=== PATIENT | male | born 1945 | race Caucasian/White ===

== ENCOUNTER 2017-04-08 02:37 | Inpatient (IN) | payer OTHER ==
[~2017-04-08] VITALS: Ht 172.7 cm; Wt 103.4 kg
[~2017-04-08 02:37] MED LIST: ATIVAN0.5 M1 PO; CARDIZEM CD120 MG PO; CENTRUM SILVER1 EAC1 PO; DIOVAN320 M1 PO; FENOFIBRIC ACI135 MG PO; LOVAZA1 G1 PO; METFORMIN HCL500 M3 PO; XARELTO20 MG PO
--- NOTE | 2017-04-08 02:53 | ED GENERAL ADULT ---
History of Present Illness General Chief Complaint: General Adult Stated Complaint: MULTI COMP,COUGH.PT ON Z-PAC PER DR BRADY Source: patient Exam Limitations: no limitations Vital Signs & Intake/Output Vital Signs & Intake/Output Vital Signs Date Time Temp Pulse Resp B/P B/P Pulse O2 O2 Flow FiO2 Mean Ox Delivery Rate 04/10 1646 95 Nasal 2.0L Cannula 04/10 1457 97.7 86 20 107/53 93 Room Air 04/10 1157 64 98/68 04/10 0845 92 Nasal 1.0L Cannula 04/10 0800 95 Nasal 2.0L Cannula 04/10 0714 60 112/58 04/10 0708 97.4 102 18 92 Room Air 04/10 0000 100 CPAP 04/09 2154 97.8 55 20 118/78 100 Room Air ED Intake and Output 04/10 0000 04/09 1200 Intake Total 1240 Output Total Balance 1240 Intake, Oral 1240 Allergies Coded Allergies: No Known Allergies (04/08/17) Triage Nurses Notes Reviewed? yes Onset: Gradual Duration: day(s):, waxing and waning Timing: recent history Injury Environment: home Severity: moderate Modifying Factors: Improves With: rest. Associated Symptoms: cough HPI: 72 yo gentleman presents with cough, wheezing, dyspnea x 5 days. He started a z-pack yesterday. He notes that the wheezing, coughing, dyspnea has continued. He has no chest pain, dizziness, phlegm, lower extremity swelling, syncopal symptoms. He is otherwise well, (Veronica CHÁVEZ,Servando Fierro) Reconcile Medications Albuterol Sulfate (Proair Hfa) 90 MCG HFA.AER.AD 2 PUF INH Q4-6 PRN PRN BREATHING (Reported) Azithromycin 250 MG TABLET 1 DP PO AD INFECTION (Reported) 2 the first day followed by 1 for days 2-5 Cetirizine HCl (Zyrtec) 10 MG TABLET 1 TAB PO DAILY ALLERGIES (Reported) Folic Acid/Multivit-Min/Lutein (Centrum Silver Chewable Tablet) 400 MCG-250 MCG TAB.CHEW 1 TAB PO DAILY MULTIVITAMIN (Reported) Furosemide (Lasix) 20 MG TABLET (Unknown Dose) PO DAILY HEART HEALTH ( Reported) Guaifenesin 100 MG/5 ML LIQUID 10 ML PO Q6P PRN COUGH Lorazepam (Ativan) 0.5 MG TABLET 1 TAB PO BID ANXIETY (Reported) Metformin HCl 500 MG TABLET 1 TAB PO BID DIABETES (Reported) Metoprolol Succinate 100 MG TAB.ER.24H 1 TAB PO QHS HEART HEALTH (Reported) Montelukast Sodium 10 MG TABLET 1 TAB PO DAILY ALLERGIES (Reported) Trinity-3 Acid Ethyl Esters (Lovaza) 1 GRAM CAPSULE 2 CAP PO BID CHOLESTEROL ( Reported) Pitavastatin Calcium (Livalo) 4 MG TABLET 1 TAB PO M,W,FR HEART HEALTH ( Reported) Polyethylene Glycol 3350 (Miralax) 17 GRAM/DOSE POWDER 17 GM PO DAILY PRN CONSTIPATION Potassium Chloride 10 MEQ TABLET.ER 1 TAB PO DAILY ELECTROLYTES (Reported) Rivaroxaban (Xarelto) 20 MG TABLET 1 TAB PO DAILY AFIB with food Sennosides/Docusate Sodium (Senna Plus Tablet) 8.6 MG-50 MG TABLET 1 TAB PO BID PRN CONSTIPATION Ubidecarenone (Coq-10) 100 MG CAPSULE 1 CAP PO QHS HEART HEALTH (Reported) Valsartan (Diovan) 320 MG TABLET 1 TAB PO DAILY HEART HEALTH (Reported) (Rica CHÁVEZ,Kaila) Past History Medical History Any Pertinent Medical History? see below for history Cardiovascular: AFIB, hypertension, hyperlipidemia Endocrine: diabetes Surgical History Surgical History: non-contributory Psychosocial History What is your primary language Nepalese Family History Hx Contributory? No (Veronica CHÁVEZ,Servando Fierro) Review of Systems Review of Systems Constitutional: Reports: no symptoms. EENTM: Reports: no symptoms. Respiratory: Reports: no symptoms. Cardiovascular: Reports: no symptoms. GI: Reports: no symptoms. Genitourinary: Reports: no symptoms. Musculoskeletal: Reports: no symptoms. Skin: Reports: no symptoms. Neurological/Psychological: Reports: no symptoms. Hematologic/Endocrine: Reports: no symptoms. Immunologic/Allergic: Reports: no symptoms. All Other Systems: Reviewed and Negative (Veronica CHÁVEZ,Servando Fierro) Physical Exam Physical Exam General Appearance: well developed/nourished, mild distress Head: atraumatic, normal appearance Eyes: Bilateral: normal appearance. Ears, Nose, Throat: normal pharynx, normal ENT inspection Neck: normal inspection, supple, full range of motion Respiratory: wheezing, prolonged expiratory phase Cardiovascular: regular rate/rhythm Gastrointestinal: normal bowel sounds, soft, non-tender, no organomegaly Back: normal inspection, normal range of motion Extremities: normal inspection, normal capillary refill, normal range of motion, no edema Neurologic/Psych: no motor/sensory deficits, awake, alert, oriented x 3 Skin: intact, normal color, warm/dry Core Measures ACS in differential dx? No CVA/TIA Diagnosis: No Sepsis Present: No Sepsis Focused Exam Completed? No (Veronica CHÁVEZ,Servando Fierro) Progress Differential Diagnoses I considered the following diagnoses in my evaluation of the patient: bronchitis, chf, pneumonia, influenza Plan of Care: Orders Procedure Date/time Status CBC WITHOUT DIFFERENTIAL 04/11 0600 Active BASIC ELECTROLYTES PLUS BUN&CR 04/11 06 Active STREP PNEUMO URINARY ANTIGEN 04/10 0731 Complete LEGIONELLA URINARY ANTIGEN 04/10 0731 Complete HEPATIC FUNCTION PANEL 04/10 07 Complete CBC WITHOUT DIFFERENTIAL 04/10 0729 Complete BASIC ELECTROLYTES PLUS BUN&CR 04/10 0729 Complete AEROSOL CHG 04/09 UNK Complete OXYGEN 04/09 UNK Complete OXYGEN DAILY CHARGE 04/09 UNK Complete Current Medications Sig/Rick Start time Last Medication Dose Stop Time Status Admin Ampicillin Sodium/ 3,000 MG Q6 04/10 1800 UNVr Sulbactam Sodium (Unasyn) Sodium Chloride 100 ML (Normal Saline 0.9%) Furosemide 20 MG DAILY 04/10 1000 AC (Lasix) Budesonide 0.5 MG Q12 04/09 2200 AC 04/09 (Pulmicort) 2025 Ipratropium [place] 2.5 ML EVERY 4 HRS/AWAKE 04/09 1200 AC 04/10 (Atrovent) 1643 Guaifenesin/Codeine 10 ML BID PRN 04/09 1115 AC 04/10 Phosphate 1536 (Robitussin AC) Prednisone 40 MG DAILY 04/09 1019 AC 04/10 1147 Polyethylene Glycol 17 GM DAILY PRN 04/09 1000 AC (Miralax) Senna/Docusate Sodium 1 TAB BID PRN 04/09 1000 AC (Senokot S) Guaifenesin 10 ML Q6P PRN 04/09 0930 AC 04/09 (Robitussin) 1030 Albuterol Sulfate 2.5 ML EVERY 4 HRS/AWAKE 04/09 0800 AC 04/10 (Proventil) 1645 Omeprazole 20 MG DAILY AC 04/09 0700 AC 04/10 (Prilosec) 0611 Benzonatate 100 MG TID 04/08 2200 AC 04/10 (Tessalon Capsule) 1147 Metoprolol Succinate 100 MG AT BEDTIME 04/08 2200 AC 04/09 (Toprol Xl) 2050 Rivaroxaban 20 MG 1700 04/08 1700 AC 04/09 (Xarelto) 1620 Insulin Aspart 0 TIDAC 04/08 1200 AC 04/09 (NovoLOG) 1908 Fish Oil 1,050 MG DAILY 04/08 1000 AC 04/10 (Trinity-3) 1147 Loratadine 10 MG DAILY 04/08 1000 AC 04/10 (Claritin) 1147 Lorazepam 0.5 MG BID 04/08 1000 AC 04/10 (Ativan) 04/15 0959 1147 Losartan Potassium 100 MG DAILY 04/08 1000 AC 04/09 (Cozaar) 1043 Acetaminophen 650 MG Q6P PRN 04/08 0945 AC (Tylenol) Ibuprofen 600 MG Q6P PRN 04/08 0945 AC (Motrin) Oxycodone/ 1 TAB Q6P PRN 04/08 0945 AC Acetaminophen (Percocet) Laboratory Tests 04/10/17 1108: Anion Gap 13, Estimated GFR 54 L, BUN/Creatinine Ratio 36.2 H, Total Bilirubin 0.5, Direct Bilirubin 0.3, AST 127 H, ALT 236 H, Alkaline Phosphatase 70, Total Protein 6.1 L, Albumin 3.5, CBC w Diff NO MAN DIFF REQ, RBC 4.15 L, MCV 100.7 H, MCH 33.0 H, RDW 15.1 H, MPV 10.1, Gran % 80.6 H, Lymphocytes % 7.8 L, Monocytes % 11.4 H, Eosinophils % 0, Basophils % 0.2, Absolute Granulocytes 12.4 H, Absolute Lymphocytes 1.2, Absolute Monocytes 1.8 H, Absolute Eosinophils 0, Absolute Basophils 0, PUBS MCHC 32.7 L Microbiology 04/10 1350 URINE ROUT: Legionella Antigen - COMP 04/10 135 URINE ROUT: Streptococcus pneumoniae Antigen (M - COMP PATIENT ADMITTED BY DR MARTIN. (Rica CHÁVEZ,Kaila) Diagnostic Imaging: Viewed by Me: Radiology Read, CT Scan. Discussed w/RAD: Radiology Read, CT Scan. Radiology Impression: chest ct... opacities... no PE PATIENT: STEFFI RUIZ PRESENT AGE: 72 PATIENT ACCOUNT NO: [id number] : LOCATION: [facility] ORDERING PHYSICIAN: Servando Martin MD SERVICE DATE: 04/08/17 EXAM TYPE: CAT - CT ABD & PELVIS W/O IV CONTRAS; CTA CHEST- PULMONARY EMBOLISM EXAMINATION: CT ANGIOGRAM OF THE CHEST WITH AND WITHOUT CONTRAST (CT PULMONARY ANGIOGRAM FOR PE) CT ABDOMEN AND PELVIS WITHOUT CONTRAST CLINICAL INFORMATION: Chest pain with positive d-dimer. Elevated LFTs. COMPARISON: 12/02/2016 TECHNIQUE: A noncontrast CT of the abdomen and pelvis was initially obtained. Prior to contrast administration, noncontrast localization images were obtained. Subsequently, multidetector volumetric imaging was performed from the thoracic inlet to below the diaphragms following the administration of 80 mL Omnipaque 350 intravenous contrast. No contrast reaction reported Sagittal, coronal, and MIP oblique sagittal reformatted images were obtained on the CT workstation, uploaded to PACS, and reviewed. Total exam dose- length product 527 mGy-cm FINDINGS: QUALITY OF STUDY/CONTRAST BOLUS: Satisfactory. PULMONARY ARTERIES: No central or segmental pulmonary emboli. THORACIC AORTA: No aneurysm or dissection. LUNG: The central airways are patent. Bronchial filling defects are seen, particularly in the right middle lobe with associated consolidation. Patchy opacity in the lingula. Additional patchy opacities in both lower lobes in areas of additional bronchial filling defects. These findings are new when compared to the previous CT. Mild centrilobular emphysema. PLEURA: No pleural effusion or pneumothorax. MEDIASTINUM: The heart is prominent. Coronary artery calcifications noted. No pericardial effusion. Increased prominence of mediastinal lymph nodes. For instance, there is a precarinal node which measures 2.5 x 1.2 cm. This compares to the prior study, measuring 2 x 0.8 cm.. No evidence of septal bowing or right heart strain. CHEST WALL/AXILLA: No axillary or internal mammary lymphadenopathy. LIVER, GALLBLADDER, AND BILIARY TREE: The liver is normal in size, shape, and attenuation. No focal hepatic lesion or biliary ductal dilatation is present. The gallbladder is unremarkable with no evidence of radiopaque gallstones, gallbladder wall thickening, or obvious pericholecystic inflammatory changes. PANCREAS: Unremarkable. SPLEEN: Unremarkable. ADRENAL GLANDS: Unremarkable. KIDNEYS AND URETERS: The kidneys are normal in size, shape, and attenuation. No hydronephrosis, hydroureter, or calculi seen. Symmetric bilateral perinephric stranding. There is a 1.2 cm left lower pole renal cyst. BLADDER: Unremarkable. GASTROINTESTINAL TRACT: The stomach and small bowel appear unremarkable. No dilated loops of bowel or evidence of obstruction. No colonic wall thickening or inflammatory change. Normal appendix. ABDOMINAL WALL: No significant hernia is appreciated. LYMPH NODES: Normal. VASCULAR: Normal caliber aorta with moderate atherosclerotic calcifications. PELVIC VISCERA: The prostate and seminal vesicles are unremarkable. OSSEOUS STRUCTURES: No acute or suspicious osseous abnormality. Mild degenerative changes throughout the spine. IMPRESSION: 1. No pulmonary embolism. 2. Diffuse bronchial filling defects with associated patchy airspace opacities seen in both lungs. Considerations include multifocal pneumonia versus aspiration. Prominent mediastinal lymph nodes are likely reactive. 3. No acute findings in the abdomen or pelvis. VTE: negative DICTATED BY: Mili CHÁVEZ,Camron DATE/TIME DICTATED:04/08/17647 HEALTH SCIENCE INSTRUCTOR: GLORIA DATE/TIME TRANSCRIBED:04/08/17647 CONFIDENTIAL, DO NOT COPY WITHOUT APPROPRIATE AUTHORIZATION. <Electronically signed in Other Vendor System> SIGNED BY: Mili CHÁVEZ,Camron 04/08/17656 CXR Impression: infiltrate... full report PATIENT: STEFFI RUIZ PRESENT AGE: 72 PATIENT ACCOUNT NO: [id number] : 43 LOCATION: [facility] ORDERING PHYSICIAN: Servando Martin MD SERVICE DATE: EXAM TYPE: RAD - XRY-CHEST XRAY, TWO VIEWS EXAMINATION: XR CHEST CLINICAL INFORMATION: Cough and dyspnea. Hypoxia. COMPARISON: CT from 12/02/2016. TECHNIQUE: 2 views of the chest were obtained. FINDINGS: The lungs are well expanded. Patchy left basilar opacity. No pleural effusion or pneumothorax. The cardiomediastinal silhouette is prominent. No acute osseous abnormality. Degenerative changes of the spine. IMPRESSION: Patchy opacity at the left lung base could represent atelectasis or pneumonia. DICTATED BY: Mili CHÁVEZ,Camron DATE/TIME DICTATED:04/08/17415 HEALTH SCIENCE INSTRUCTOR:BENJAMIN DATE/TIME TRANSCRIBED:04/08/17415 CONFIDENTIAL, DO NOT COPY WITHOUT APPROPRIATE AUTHORIZATION. <Electronically signed in Other Vendor System> SIGNED BY: Mili CHÁVEZ,Camron 04/08/17 0420 Initial ED EKG: afib, no change from prior (Servando Martin MD) Differential Diagnoses I considered the following diagnoses in my evaluation of the patient: (Kaila Strauss MD) Departure Departure Disposition: STILL A PATIENT Condition: Stable Clinical Impression Primary Impression: Pneumonia Secondary Impressions: Hypoxia Referrals: Peterson Collier MD (PCP/Family) Departure Forms: Customer Survey General Discharge Information Comments upon arrival, 02 sat 88%, peak flow 180. Admission Note Spoke With: Sondra Cueto MD Documentation of Exam: Documentation of any treatments & extenuating circumstances including Concerns Regarding Discharge (functional status, medication knowledge or non-compliance, living conditions, etc.) that warrant an admission rather than observation: pt with pneumonia, hypoxic upon presentation, with comorbidities... pt to be admitted for iv abx, having failed out patient abx... pt also merits 02 support... pt with known afib, likely okay for gen med. (Servando Martin MD) Departure Prescriptions: Current Visit Scripts Guaifenesin 10 ML PO Q6P PRN COUGH 14 Days Polyethylene Glycol 3350 (Miralax) 17 GM PO DAILY PRN CONSTIPATION 30 Days Sennosides/Docusate Sodium (Senna Plus Tablet) 1 TAB PO BID PRN CONSTIPATION #30 TAB Rivaroxaban (Xarelto) 1 TAB PO DAILY #30 TAB with food PA/PRODUCTION CONTROLLER Co-Sign Statement Statement: ED Attending supervision documentation- [] I saw and evaluated the patient. I have also reviewed all the pertinent lab results and diagnostic results. I agree with the findings and the plan of care as documented in the PA's/PRODUCTION CONTROLLER's documentation. [] I have reviewed the ED Record and agree with the PA's/PRODUCTION CONTROLLER's documentation. [] Additions or exceptions (if any) to the PAs/PRODUCTION CONTROLLER's note and plan are summarized below: [] (Kaila Strauss MD) Critical Care Note Critical Care Note Critical Care Time: non-applicable (Servando Martin MD)
--- NOTE | 2017-04-08 04:20 | RADIOLOGY REPORT ---
EXAMINATION: XR CHEST CLINICAL INFORMATION: Cough and dyspnea. Hypoxia. COMPARISON: CT from 12/02/2016. TECHNIQUE: 2 views of the chest were obtained. FINDINGS: The lungs are well expanded. Patchy left basilar opacity. No pleural effusion or pneumothorax. The cardiomediastinal silhouette is prominent. No acute osseous abnormality. Degenerative changes of the spine. IMPRESSION: Patchy opacity at the left lung base could represent atelectasis or pneumonia.
[2017-04-08 04:21] LABS: ABSOLUTE BASOPHIL COUNT 0 /CUMM (0.0-0.2); ABSOLUTE EOSINOPHIL COUNT 0.1 /CUMM (0.0-0.7); ABSOLUTE GRANULOCYTE CT 7.4 /CUMM (1.4-6.5); ABSOLUTE LYMPH COUNT 0.9 /CUMM (1.2-3.4); ABSOLUTE MONOCYTE COUNT 0.7 /CUMM (0.10-0.60); BASOPHIL % 0.3 % (0.0-2.0); EOSINOPHIL % 1.2 % (0-5); GRANULOCYTE % 81.2 % (42.2-75.2); HEMATOCRIT 45.6 % (42-52); MEAN CORPUSCULAR HGB 32.6 PG (27.0-31.0); MEAN CORPUSCULAR VOLUME 98.9 FL (80.0-94.0); MEAN PLATELET VOLUME 10.3 FL (7.4-10.4); PLATELET COUNT 141 /CUMM (130-400); RBC DISTRIBUTION WIDTH 14.4 % (11.5-14.5); RED BLOOD CELL CT 4.61 /CUMM (4.70-6.10); WHITE BLOOD CELL COUNT 9.1 /CUMM (4.8-10.8)
[2017-04-08] MEDS ORDERED: POTASSIUM CHLO10 ME4 PO (05:34)
[2017-04-08] MEDS ORDERED: MONTELUKAST SOD10 M1 PO (05:35)
[2017-04-08] MEDS ORDERED: PROAIR HFA8.5 GM INH (05:36)
[2017-04-08] MEDS ORDERED: LIVALO4 M1 PO (05:38)
[2017-04-08] MEDS ORDERED: METOPROLOL SUC100 M2 PO (05:40)
[2017-04-08] MEDS ORDERED: AZITHROMYCIN250 M1 PO (05:41)
[2017-04-08] MEDS ORDERED: COQ-10100 MG PO (05:42)
[2017-04-08] MEDS ORDERED: LASIX20 M1 PO (05:43)
[2017-04-08] MEDS ORDERED: ZYRTEC10 M3 PO (05:45)
--- NOTE | 2017-04-08 06:57 | CT SCAN REPORT ---
EXAMINATION: CT ANGIOGRAM OF THE CHEST WITH AND WITHOUT CONTRAST (CT PULMONARY ANGIOGRAM FOR PE) CT ABDOMEN AND PELVIS WITHOUT CONTRAST CLINICAL INFORMATION: Chest pain with positive d-dimer. Elevated LFTs. COMPARISON: 12/02/2016 TECHNIQUE: A noncontrast CT of the abdomen and pelvis was initially obtained. Prior to contrast administration, noncontrast localization images were obtained. Subsequently, multidetector volumetric imaging was performed from the thoracic inlet to below the diaphragms following the administration of 80 mL Omnipaque 350 intravenous contrast. No contrast reaction reported Sagittal, coronal, and MIP oblique sagittal reformatted images were obtained on the CT workstation, uploaded to PACS, and reviewed. Total exam dose-length product 527 mGy-cm FINDINGS: QUALITY OF STUDY/CONTRAST BOLUS: Satisfactory. PULMONARY ARTERIES: No central or segmental pulmonary emboli. THORACIC AORTA: No aneurysm or dissection. LUNG: The central airways are patent. Bronchial filling defects are seen, particularly in the right middle lobe with associated consolidation. Patchy opacity in the lingula. Additional patchy opacities in both lower lobes in areas of additional bronchial filling defects. These findings are new when compared to the previous CT. Mild centrilobular emphysema. PLEURA: No pleural effusion or pneumothorax. MEDIASTINUM: The heart is prominent. Coronary artery calcifications noted. No pericardial effusion. Increased prominence of mediastinal lymph nodes. For instance, there is a precarinal node which measures 2.5 x 1.2 cm. This compares to the prior study, measuring 2 x 0.8 cm.. No evidence of septal bowing or right heart strain. CHEST WALL/AXILLA: No axillary or internal mammary lymphadenopathy. LIVER, GALLBLADDER, AND BILIARY TREE: The liver is normal in size, shape, and attenuation. No focal hepatic lesion or biliary ductal dilatation is present. The gallbladder is unremarkable with no evidence of radiopaque gallstones, gallbladder wall thickening, or obvious pericholecystic inflammatory changes. PANCREAS: Unremarkable. SPLEEN: Unremarkable. ADRENAL GLANDS: Unremarkable. KIDNEYS AND URETERS: The kidneys are normal in size, shape, and attenuation. No hydronephrosis, hydroureter, or calculi seen. Symmetric bilateral perinephric stranding. There is a 1.2 cm left lower pole renal cyst. BLADDER: Unremarkable. GASTROINTESTINAL TRACT: The stomach and small bowel appear unremarkable. No dilated loops of bowel or evidence of obstruction. No colonic wall thickening or inflammatory change. Normal appendix. ABDOMINAL WALL: No significant hernia is appreciated. LYMPH NODES: Normal. VASCULAR: Normal caliber aorta with moderate atherosclerotic calcifications. PELVIC VISCERA: The prostate and seminal vesicles are unremarkable. OSSEOUS STRUCTURES: No acute or suspicious osseous abnormality. Mild degenerative changes throughout the spine. IMPRESSION: 1. No pulmonary embolism. 2. Diffuse bronchial filling defects with associated patchy airspace opacities seen in both lungs. Considerations include multifocal pneumonia versus aspiration. Prominent mediastinal lymph nodes are likely reactive. 3. No acute findings in the abdomen or pelvis. VTE: negative
[2017-04-08] MEDS ORDERED: XARELTO20 M2 PO (09:47)
--- NOTE | 2017-04-08 09:55 | History & Physical ---
Hussain CHÁVEZ,Pari 04/08/17 0955: General Information and HPI MD Statement: I have seen and personally examined STEFFI RUIZ and documented this H&P. The patient is a 72 year old M who presented with a patient stated chief complaint of sob, cough[]. Source of Information: patient, old records Exam Limitations: no limitations History of Present Illness: This is a 72 yo male with PMH of afib on xarelto, htn, anxiety, hld, who comes in with CC of SOB and cough. He states since his 's about a week ago he has been increasingly stressed and feeling under the weather. However, this past Thursday he chavo particularly weak, SOB and developed cough and coryza. He states cough was initially non-productive but then with thick sputum that he had difficulty bringing up. He saw PCP Dr. Azar yesterday and was started on Azithromycin. He denies any RICO/dizziness, chagne in vision, but does endorse cough, sore throat, coryza, SOB, no CP, abd pain, N,V, does endorse diarrhea for which he took imodium. He does not currently smoke, but has hx of 30+ pack years. Quit 25 yrs ago. He does endorse social etoh consumption, no IVDA. While pt is noT aware of any pulm diagnosis he uses CPAP at night. Allergies/Medications Allergies: Coded Allergies: No Known Allergies (04/08/17) Home Med list Albuterol Sulfate (Proair Hfa) 90 MCG HFA.AER.AD 2 PUF INH Q4-6 PRN PRN BREATHING (Reported) Azithromycin 250 MG TABLET 1 DP PO AD INFECTION (Reported) 2 the first day followed by 1 for days 2-5 Cetirizine HCl (Zyrtec) 10 MG TABLET 1 TAB PO DAILY ALLERGIES (Reported) Folic Acid/Multivit-Min/Lutein (Centrum Silver Chewable Tablet) 400 MCG-250 MCG TAB.CHEW 1 TAB PO DAILY MULTIVITAMIN (Reported) Furosemide (Lasix) 20 MG TABLET (Unknown Dose) PO DAILY HEART HEALTH ( Reported) Lorazepam (Ativan) 0.5 MG TABLET 1 TAB PO BID ANXIETY (Reported) Metformin HCl 500 MG TABLET 1 TAB PO BID DIABETES (Reported) Metoprolol Succinate 100 MG TAB.ER.24H 1 TAB PO QHS HEART HEALTH (Reported) Montelukast Sodium 10 MG TABLET 1 TAB PO DAILY ALLERGIES (Reported) [place]-3 Acid Ethyl Esters (Lovaza) 1 GRAM CAPSULE 2 CAP PO BID CHOLESTEROL ( Reported) Pitavastatin Calcium (Livalo) 4 MG TABLET 1 TAB PO M,W,FR HEART HEALTH ( Reported) Potassium Chloride 10 MEQ TABLET.ER 1 TAB PO DAILY ELECTROLYTES (Reported) Rivaroxaban (Xarelto) 20 MG TABLET 1 TAB PO DAILY AFIB with food Ubidecarenone (Coq-10) 100 MG CAPSULE 1 CAP PO QHS HEART HEALTH (Reported) Valsartan (Diovan) 320 MG TABLET 1 TAB PO DAILY HEART HEALTH (Reported) Compliance With Home Meds: GOOD Past History Travel History Traveled to [place] past 21 day No Medical History Neurological: NONE EENT: allergies Cardiovascular: AFIB, hypertension, hyperlipidemia Respiratory: obstructive sleep apnea, pneumonia Gastrointestinal: NONE Hepatic: NONE Renal: NONE Musculoskeletal: NONE Psychiatric: anxiety Endocrine: diabetes Blood Disorders: NONE Cancer(s): NONE 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 Exam & Diagnostic Data Last 24 Hrs of Vital Signs/I&O Vital Signs Date Time Temp Pulse Resp B/P B/P Pulse O2 O2 Flow FiO2 Mean Ox Delivery Rate 04/08 1351 98.1 112 20 135/77 96 Nasal 2.5L Cannula 04/08 1146 86 132/72 04/08 1015 96.6 86 18 132/72 94 04/08 0813 96.1 116 18 143/77 94 04/08 0515 99.3 110 18 143/89 93 Room Air 04/08 0318 95 Nasal 2.0L Cannula 04/08 0315 94 Nasal 2.0L Cannula 04/08 0254 98.1 85 18 148/95 89 Room Air Intake & Output 04/08 1600 04/08 0800 04/08 0000 Intake Total Output Total Balance Patient 103.419 kg Weight Weight Reported by Patient Measurement Method Physical Exam General Appearance Alert, Oriented X3, Cooperative, No Acute Distress Skin No Significant Lesion HEENT Atraumatic, PERRLA, EOMI, Mucous Membr. moist/pink Neck Supple, No LAD Cardiovascular afib. tachycardic Lungs diffuse expiratory wheeze in all harrison. no crackles or rhonchi Abdomen Soft, No Tenderness Last 24 Hrs of Labs/Fabian: Laboratory Tests 04/08/17 0454: Anion Gap 15, Estimated GFR > 60, BUN/Creatinine Ratio 44.3 H, Glucose 137 H, Calcium 8.7, Total Bilirubin 1.1, Direct Bilirubin 0.4, AST 283 H, ALT 260 H, Alkaline Phosphatase 70, Troponin I 0.09, Total Protein 6.4, Albumin 3.7, Amylase < 30 L, Lipase 68 04/08/17 0353: D-Dimer High Sensitivty 437 H, CBC w Diff NO MAN DIFF REQ, RBC 4.61 L, MCV 98.9 H, MCH 32.6 H, RDW 14.4, MPV 10.3, Gran % 81.2 H, Lymphocytes % 9.5 L, Monocytes % 7.8, Eosinophils % 1.2, Basophils % 0.3, Absolute Granulocytes 7.4 H, Absolute Lymphocytes 0.9 L, Absolute Monocytes 0.7 H, Absolute Eosinophils 0.1, Absolute Basophils 0, PUBS MCHC 33.0 Microbiology 04/08 1022 URINE ROUT: Legionella Antigen - COLB 04/08 1022 URINE ROUT: Streptococcus pneumoniae Antigen (M - COLB 04/08 0500 LOWER RESP: Respiratory Culture - RES 04/08 0500 LOWER RESP: Gram Stain - RES 04/08 0450 BLOOD: Blood Culture - RECD 04/08 0418 BLOOD: Blood Culture - RECD 04/08 0305 NASOPHARYN: Influenza Virus A & B Rapid Smear - COMP Assessment/Plan Assessment: This is a 72 yo male with PMH of afib on xarelto, htn, anxiety, hld, who comes in with CC of SOB and cough. In ED triage he was satting 89-90% on RA and HR 110 in a.fib. Will admit for hypoxia to GM. 1. Hypoxia2/2 PNA: CT shows diffuse bronchial fillign defects with associated patchy airspace opacity in both lungs. Concern for PNA in this pt. However, no WBC elevation or fever which could be due to either viral etiology or the fact that he was prescribed azithromycin yesterday. * Blood cx * sputum cx * Flu swab * Legionella antigen * Budesonide BID * anti-tussive * Viral culture * Ceftriaxone * Azithromycin * Got one dose of steroids in ED. Hold off further. Reassess in AM * Appreciate pulm input * O2 for sats > 92 * TRC * Continue Zyrtec Afib RVR: Pt has baseline afib on xarelto. Did not take his AM meds including beta trevor. EKG shows afib with rate 126. * administer beta trevor * Reassess * con't Xarelto Transamanitis: Pt has AST 283, ALT 260. Denies excessive drinking after but does endorse social etoh consumption. This is first time LFT elevated. * Hold statin * Obtain tox screen * Repeat in AM * Will still administer Tylenol if febrile HTN: * Con't valsartan * Hold home lasix Anxiety: * Con't home ativan FC Heart healthy diet chemical dvt ppx As Ranked By This Provider Problem List: 1. Atrial fibrillation 2. Pneumonia 3. Hypoxia Core Measures/Misc (12/14) Acute Coronary Syndrome ACS Diagnosis: No Congestive Heart Failure Congestive Heart Failure Diagnosis No Cerebrovascular Accident CVA/TIA Diagnosis: No VTE (View Protocol) VTE Risk Factors Acute Medical Illness No Mechanical VTE Prophylaxis d/t N/A MechProphylax Ordered No VTE Pharm Prophylaxis d/t NA PharmProphylax ordered Sepsis (View protocol) Sepsis Present: No Luz Marina Jameson MD 04/08/17 1113: Attending MD Review Statement Attending Statement Attending MD Statement: examined this patient, discuss w/resident/PA/INNER TUBE TUBER MACHINE OPERATOR, agreed w/resident/PA/INNER TUBE TUBER MACHINE OPERATOR, reviewed EMR data (avail) Attending Assessment/Plan: 72M PMH atrial fibrillation on Xarelto, HTN, HLD, YURY presenting with 4 days of productive cough, dyspnea, and wheezing, found to be hypoxic in ED to 89% on room air, with imaging showing multilobar pneumonia. Patient is hemodynamically stable and comfortable, no sick contacts or recent travel, bilateral wheezing on lung exam, appears ill, normal cardiac and GI exams. CTA chest negative for PE. HR elevated to 110 in afib initially, slowly improving. 1. Bilateral lower lobe pneumonia 2. Hypoxia 3. Paroxysmal atrial fibrillation Plan - Admit to general medicine - Ceftriaxone and Azithromycin - Sputum culture - Continue Solumedrol - Nebulizer treatments - Continue home medications - DVT PPx
--- NOTE | 2017-04-08 11:15 | Admission Certification ---
Admission Certification Certification Statement - As attending physician, I certify that at the time of - admission, based on clinical presentation, severity of - symptoms, need for further diagnostic testing and - therapeutic interventions, and risk of adverse outcomes - without in-hospital treatment, in my clinical assessment, - this patient requires an acute hospital stay for a minimum - of two nights or longer. I have also considered psychsocial - factors such as support system, advanced age, financial - issues, cognitive issues, and failed out-patient treatments, - past re-admission history, safety of patient, and lack of - compliance as applicable. Specific rationale supporting this admission is: Multilobar pneumonia failing outpatient therapy
--- NOTE | 2017-04-08 19:38 | Cons- Pulmonary ---
General Information and HPI Consulting Request Date of Consult: 04/08/17 Requested By: ed and pt History of Present Illness: This is a 72 yo male with PMH of afib on xarelto, htn, anxiety, hld, who comes in with CC of SOB and cough. He states since his 's about a week ago he has been increasingly stressed and feeling under the weather. However, this past Thursday he chavo particularly weak, SOB and developed cough and coryza. He states cough was initially non-productive but then with thick sputum that he had difficulty bringing up. He saw PCP Dr. Azar yesterday and was started on Azithromycin. He denies any RICO/dizziness, chagne in vision, but does endorse cough, sore throat, coryza, SOB, no CP, abd pain, N,V, does endorse diarrhea for which he took imodium. He does not currently smoke, but has hx of 30+ pack years. Quit 25 yrs ago. He does endorse social etoh consumption, no IVDA. He has sig edmundo and his issues include He has mild obstructive and restrictive lung disease 88 percent more than 2 hrs and lowest level was 65 percent The CPAPPT with 2 litres of oxygen with CPAP due to severe overnight hypoxia indicated Allergies/Medications Allergies: Coded Allergies: No Known Allergies (04/08/17) Home Med List: Albuterol Sulfate (Proair Hfa) 90 MCG HFA.AER.AD 2 PUF INH Q4-6 PRN PRN BREATHING (Reported) Azithromycin 250 MG TABLET 1 DP PO AD INFECTION (Reported) 2 the first day followed by 1 for days 2-5 Cetirizine HCl (Zyrtec) 10 MG TABLET 1 TAB PO DAILY ALLERGIES (Reported) Folic Acid/Multivit-Min/Lutein (Centrum Silver Chewable Tablet) 400 MCG-250 MCG TAB.CHEW 1 TAB PO DAILY MULTIVITAMIN (Reported) Furosemide (Lasix) 20 MG TABLET (Unknown Dose) PO DAILY HEART HEALTH ( Reported) Lorazepam (Ativan) 0.5 MG TABLET 1 TAB PO BID ANXIETY (Reported) Metformin HCl 500 MG TABLET 1 TAB PO BID DIABETES (Reported) Metoprolol Succinate 100 MG TAB.ER.24H 1 TAB PO QHS HEART HEALTH (Reported) Montelukast Sodium 10 MG TABLET 1 TAB PO DAILY ALLERGIES (Reported) [place]-3 Acid Ethyl Esters (Lovaza) 1 GRAM CAPSULE 2 CAP PO BID CHOLESTEROL ( Reported) Pitavastatin Calcium (Livalo) 4 MG TABLET 1 TAB PO M,W,FR HEART HEALTH ( Reported) Potassium Chloride 10 MEQ TABLET.ER 1 TAB PO DAILY ELECTROLYTES (Reported) Rivaroxaban (Xarelto) 20 MG TABLET 1 TAB PO DAILY AFIB with food Ubidecarenone (Coq-10) 100 MG CAPSULE 1 CAP PO QHS HEART HEALTH (Reported) Valsartan (Diovan) 320 MG TABLET 1 TAB PO DAILY HEART HEALTH (Reported) Review of Systems Review of Systems Constitutional: Denies: see HPI. 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 Home Services at Home: Oxygen, 2LNC AT NIGHT CPAP Smoking Status: Former Smoker Exam & Diagnostic Data Last 24 Hrs of Vital Signs/I&O Vital Signs Date Time Temp Pulse Resp B/P B/P Pulse O2 O2 Flow FiO2 Mean Ox Delivery Rate 04/08 1815 Nasal 2.0L Cannula 04/08 1728 98.0 104 18 138/88 95 Nasal 2.0L Cannula 04/08 1351 98.1 112 20 135/77 96 Nasal 2.5L Cannula 04/08 1146 86 132/72 04/08 1015 96.6 86 18 132/72 94 04/08 0813 96.1 116 18 143/77 94 04/08 0515 99.3 110 18 143/89 93 Room Air 04/08 0318 95 Nasal 2.0L Cannula 04/08 0315 94 Nasal 2.0L Cannula 04/08 0254 98.1 85 18 148/95 89 Room Air Intake & Output 04/08 1600 04/08 0800 04/08 0000 Intake Total Output Total Balance Patient 228 lb Weight Weight Reported by Patient Measurement Method Last 48 Hrs of Labs/Fabian: Laboratory Tests 04/08/17 0454: Anion Gap 15, Estimated GFR > 60, BUN/Creatinine Ratio 44.3 H, Glucose 137 H, Calcium 8.7, Total Bilirubin 1.1, Direct Bilirubin 0.4, AST 283 H, ALT 260 H, Alkaline Phosphatase 70, Troponin I 0.09, Total Protein 6.4, Albumin 3.7, Amylase < 30 L, Lipase 68 04/08/17 0353: D-Dimer High Sensitivty 437 H, CBC w Diff NO MAN DIFF REQ, RBC 4.61 L, MCV 98.9 H, MCH 32.6 H, RDW 14.4, MPV 10.3, Gran % 81.2 H, Lymphocytes % 9.5 L, Monocytes % 7.8, Eosinophils % 1.2, Basophils % 0.3, Absolute Granulocytes 7.4 H, Absolute Lymphocytes 0.9 L, Absolute Monocytes 0.7 H, Absolute Eosinophils 0.1, Absolute Basophils 0, PUBS MCHC 33.0 Microbiology 04/08 0305 NASOPHARYN: Influenza Virus A & B Rapid Smear - COMP Assessment/Plan Impression/Plan: CT IMPRESSION: 1. No pulmonary embolism. 2. Diffuse bronchial filling defects with associated patchy airspace opacities seen in both lungs. Considerations include multifocal pneumonia versus aspiration. Prominent mediastinal lymph nodes are likely reactive. 3. No acute findings in the abdomen or pelvis. VTE: negative DICTATED BY: Mili CHÁVEZ,Camron DATE/TIME DICTATED:04/08/17 / 48 REINALDO eomi neck supple chest mild crackles and diffuse wheezing abd obese no sig edema IMPRESSION 72 yo male with PMH of afib on xarelto, htn, anxiety, hld, who comes in with CC of SOB and cough. In ED triage he was satting 89-90% on RA and HR 110 in a.fib. ISSUES SIg bilateral bronchopneumonia/ with sig cough / rule out atypical organisms No clinical history sugg of aspirtion, however pt does have gerd Severe edmundo on cpap Obstructive and restrictive lung disease, mild to mod with previous history of smoking Morbid obesity REcent loss of his spouse Altered lfts rule out leigenella, mycoplasma No sig fever or body aches unlikely influenza (neg swab) will need viral cultures REC Azitro and ceftriaxone Await sputum culture Check urinary antigen Keep hob up PPI Cont other meds Nebs atc Budesonide 0.5 mg neb respules bid atc Sent viral cultures Hold cpap for tonight will follow Consult Acknowledgment - Thank you for your consult request.
[2017-04-08 22:06] VITALS: BP 122/84
[2017-04-09 06:39] VITALS: BP 130/68
--- NOTE | 2017-04-09 07:17 | PN- Housestaff ---
Festus CHÁVEZ,Shadia 04/09/17 0717: Subjective Follow-up For: Hypoxia2/2 multilobular PNA Afib on xarelto Transamanitis Subjective: Patient is seen and examined at bedside, he continues to complain of cough and expectoration of thick yellowish-brown sputum, in addition he reports sweating and constipation for a few days, denies fever, chills, nausea, vomiting, diarrhea or chest pain. Sputum culture grew gram-negative rods Review of Systems Constitutional: Reports: diaphoresis, malaise, weakness. Cardiovascular: Denies: chest pain, edema, orthopena, palpitations. Respiratory: Reports: cough, short of breath, sputum production. Gastrointestinal: Reports: constipation. Denies: diarrhea, distention, bowel incontinence, melena , bloody stool, vomiting. Genitourinary: Denies: no symptoms. Musculoskeletal: Denies: no symptoms. Skin: Denies: no symptoms. Objective Last 24 Hrs of Vital Signs/I&O Vital Signs Date Time Temp Pulse Resp B/P B/P Pulse O2 O2 Flow FiO2 Mean Ox Delivery Rate 04/09 1043 104 124/62 04/09 0907 89 Room Air 04/09 0800 95 Nasal 2.0L Cannula 04/09 0639 97.5 90 20 130/68 93 Nasal 2.0L Cannula 04/09 0000 Nasal 2.0L Cannula 04/08 2233 Nasal 2.0L Cannula 04/08 2212 60 122/66 04/08 2206 98.7 80 18 122/84 92 Nasal 2.0L Cannula 04/08 1815 Nasal 2.0L Cannula 04/08 1728 98.0 104 18 138/88 95 Nasal 2.0L Cannula Intake & Output 04/09 1600 04/09 0800 04/09 0000 Intake Total Output Total Balance Patient 228 lb Weight Weight Reported by Patient Measurement Method Physical Exam General Appearance: Alert, Oriented X3, Cooperative, No Acute Distress Skin: No Rashes, No Breakdown, No Significant Lesion HEENT: Atraumatic, PERRLA, EOMI, Mucous Membr. moist/pink Neck: Supple, No JVD, No thryomegaly Cardiovascular: Normal S1, Normal S2, No Murmurs Lungs: WIDE SPREAS RALES , WHEEZES Abdomen: Normal Bowel Sounds, Soft, No Tenderness Neurological: Normal Speech, Strength at 5/5 X4 Ext, Normal Tone, Sensation Intact Extremities: No Clubbing, No Cyanosis, No Edema Assessment/Plan Assessment: 75-year-old male with past medical history of A. fib on Xeralto, hypertension, anxiety, hyperlipidemia, presented to [place] ED complaining of shortness of breath, his pulse ox in the ED was around 90% on room air, heart rate [address] chest shows significant bilateral bronchopneumonia, sputum culture today due to gram negative rods (H influenza or Moraxella), patient also has history of severe obstructive sleep apnea on CPAP, morbid obesity #Bilateral bronchopneumonia We'll continue ceftriaxone and azithromycin (day 2 Prednisone 40 by mouth daily Follow-up on sputum culture for susceptibility and identification Start Budesonide neb duoneb BID for 2 days Keep head of bed elevated Continue PPI TRC, Nebs atc Robitussin with codeine 10 mL twice a day when necessary We'll hold CPAP tonight as per pulmonary recommendation #Afib RVR: Continue beta trevor and Xarelto #Transamanitis: AST bImproving today This is first time LFT elevated. Hold statin Will still administer Tylenol if febrile #HTN: Con't valsartan Hold home lasix Anxiety: Con't home ativan FC Heart healthy diet dvt ppx with Xeralto Problem List: 1. Pneumonia 2. Atrial fibrillation Pain Ratin Pain Location: n/a Pain Goal: Remain pain free Pain Plan: pathway Tomorrow's Labs & Rationales: cbc bep DVT/Prophylaxis: mechanical, pharmacological Luz Marina Jameson MD 04/09/17 1149: Attending MD Review Statement Attending Statement Attending MD Statement: examined this patient, discuss w/resident/PA/DIE CASTER, agreed w/resident/PA/DIE CASTER, reviewed EMR data (avail) Attending Assessment/Plan: 72M PMH atrial fibrillation on Xarelto, HTN, HLD, YURY presenting with 4 days of productive cough, dyspnea, and wheezing, found to be hypoxic in ED to 89% on room air, with imaging showing multilobar pneumonia. Patient is hemodynamically stable and comfortable, no sick contacts or recent travel, bilateral wheezing on lung exam, appears ill, normal cardiac and GI exams. CTA chest negative for PE. HR elevated to 110 in afib initially, slowly improving. 1. Bilateral lower lobe pneumonia 2. Hypoxia 3. Paroxysmal atrial fibrillation Plan - Admit to general medicine - Ceftriaxone and Azithromycin - Sputum culture - Continue Solumedrol - Nebulizer treatments - Continue home medications - DVT PPx
[2017-04-09 08:10] LABS: ABSOLUTE BASOPHIL COUNT 0 /CUMM (0.0-0.2); ABSOLUTE EOSINOPHIL COUNT 0 /CUMM (0.0-0.7); ABSOLUTE GRANULOCYTE CT 8.9 /CUMM (1.4-6.5); ABSOLUTE LYMPH COUNT 0.7 /CUMM (1.2-3.4); ABSOLUTE MONOCYTE COUNT 0.8 /CUMM (0.10-0.60); BASOPHIL % 0 % (0.0-2.0); EOSINOPHIL % 0.1 % (0-5); HEMATOCRIT 42.8 % (42-52); MEAN CORPUSCULAR HGB 32.7 PG (27.0-31.0); MEAN CORPUSCULAR HGB CONC 32.8 G/DL (33.0-37.0); MEAN CORPUSCULAR VOLUME 99.6 FL (80.0-94.0); MEAN PLATELET VOLUME 9.9 FL (7.4-10.4); PLATELET COUNT 175 /CUMM (130-400); RBC DISTRIBUTION WIDTH 15.1 % (11.5-14.5); WHITE BLOOD CELL COUNT 10.4 /CUMM (4.8-10.8)
[2017-04-09 09:10] LABS: GRANULOCYTE % 85.3 % (42.2-75.2)
--- NOTE | 2017-04-09 10:43 | PN- Pulmonary ---
Subjective HPI/Critical Care Issues: Still coughing Sputum gram neg rods Objective Current Medications: Current Medications Sig/Rick Start time Last Medication Dose Route Stop Time Status Admin Acetaminophen 650 MG Q6P PRN 04/08 0945 AC PO Albuterol Sulfate 2.5 ML EVERY 4 HRS/AWAKE 04/09 0800 AC 04/09 INH 0906 Atorvastatin Calcium 5 MG MoWeFr@1700 04/08 1700 CAN PO Azithromycin 500 MG Q24H 04/09 0500 AC 04/09 Dextrose/Water 250 ML IV 0622 Benzonatate 100 MG TID 04/08 2200 AC 04/08 PO 2213 Budesonide/ 2 PUF BID 04/08 2245 AC Formoterol Fumarate INH Budesonide/ 2 PUF BID 04/08 1409 AC 04/08 Formoterol Fumarate INH 2213 Ceftriaxone Sodium 1,000 MG Q24H 04/09 0600 AC 04/09 IV 0639 Enoxaparin Sodium 40 MG DAILY 04/08 1000 DC 04/08 SC 1146 Fish Oil 1,050 MG DAILY 04/08 1000 AC 04/08 PO 1147 Guaifenesin 10 ML Q6P PRN 04/09 0930 AC PO Ibuprofen 600 MG Q6P PRN 04/08 0945 AC PO Insulin Aspart 0 TIDAC 04/08 1200 AC 04/08 SC 1302 Loratadine 10 MG DAILY 04/08 1000 AC 04/08 PO 1146 Lorazepam 0 .STK-MED ONE 04/08 1141 DC PO Lorazepam 0.5 MG BID 04/08 1000 AC 04/08 PO 04/15 0959 2213 Losartan Potassium 100 MG DAILY 04/08 1000 AC 04/08 PO 1146 Methylprednisolone 60 MG ONCE ONE 04/09 1045 CAN IV 04/09 1046 Metoprolol Succinate 100 MG AT BEDTIME 04/08 2200 AC 04/08 PO 2212 Omeprazole 40 MG DAILY AC 04/09 0700 DC PO Omeprazole 20 MG DAILY AC 04/09 0700 AC 04/09 PO 0639 Oxycodone/ 1 TAB Q6P PRN 04/08 0945 AC Acetaminophen PO Polyethylene Glycol 17 GM DAILY PRN 04/09 1000 AC PO Prednisone 40 MG DAILY 04/09 1019 AC PO Rivaroxaban 20 MG 1700 04/08 1700 AC 04/08 PO 1606 Senna/Docusate Sodium 1 TAB BID PRN 04/09 1000 AC PO Sodium Chloride 1,000 ML Q10H 04/08 1030 DC 04/08 IV 04/08 2028 1151 Vital Signs & I&O Last 24 Hrs of Vitals and I&O: Vital Signs Date Time Temp Pulse Resp B/P B/P Pulse O2 O2 Flow FiO2 Mean Ox Delivery Rate 04/09 0907 89 Room Air 04/09 0639 97.5 90 20 130/68 93 Nasal 2.0L Cannula 04/09 0000 Nasal 2.0L Cannula 04/08 2233 Nasal 2.0L Cannula 04/08 2212 60 122/66 04/08 2206 98.7 80 18 122/84 92 Nasal 2.0L Cannula 04/08 1815 Nasal 2.0L Cannula 04/08 1728 98.0 104 18 138/88 95 Nasal 2.0L Cannula 04/08 1351 98.1 112 20 135/77 96 Nasal 2.5L Cannula 04/08 1146 86 132/72 Intake & Output 04/09 1600 04/09 0800 04/09 0000 Intake Total Output Total Balance Patient 228 lb Weight Weight Reported by Patient Measurement Method Impression/Plan Impression/Plan Impression/Plan: CT IMPRESSION: 1. No pulmonary embolism. 2. Diffuse bronchial filling defects with associated patchy airspace opacities seen in both lungs. Considerations include multifocal pneumonia versus aspiration. Prominent mediastinal lymph nodes are likely reactive. 3. No acute findings in the abdomen or pelvis. VTE: negative DICTATED BY: Mili CHÁVEZ,Camron DATE/TIME DICTATED:04/08/1748 REINALDO eomi neck supple chest mild crackles and diffuse wheezing abd obese no sig edema IMPRESSION 72 yo male with PMH of afib on xarelto, htn, anxiety, hld, who comes in with CC of SOB and cough. In ED triage he was satting 89-90% on RA and HR 110 in a.fib. ISSUES SIg bilateral bronchopneumonia/ with sig cough / with prob H. INflu or Moraxella No clinical history sugg of aspirtion, however pt does have gerd Severe edmundo on cpap Mild to mod Obstructive and restrictive lung disease, Morbid obesity REcent loss of his spouse Altered lfts REC Prednisone 40 qd Azitro and ceftriaxone for now Await sputum culture Start Budesonide neb bid for two days with duoneb jhoana ask resp to do this Keep hob up PPI Cont other meds Nebs atc Robutussin with codeine 10 ml bid prn Hold cpap for tonight will follow
[2017-04-09 15:10] VITALS: BP 134/70
[2017-04-09 21:54] VITALS: BP 118/78
--- NOTE | 2017-04-10 07:01 | PN- Housestaff ---
Festus CHÁVEZ,Shadia 04/10/17 0700: Subjective Follow-up For: Hypoxia2/2 multilobular PNA Afib on xarelto Transamanitis Subjective: Patient is seen and examined at bedside, he continues to complain of productive cough with expectoration of brownish sputum, he denies any fever, chills, chest pain, nausea or vomiting, he reports having bowel movement yesterday after taking stool softer. Review of Systems Constitutional: Denies: no symptoms. Cardiovascular: Reports: edema. Denies: chest pain, orthopena, palpitations, peripheral edema. Respiratory: Reports: cough, short of breath, sputum production. Gastrointestinal: Denies: no symptoms. Genitourinary: Denies: no symptoms. Musculoskeletal: Denies: no symptoms. Skin: Denies: no symptoms. Objective Last 24 Hrs of Vital Signs/I&O Vital Signs Date Time Temp Pulse Resp B/P B/P Pulse O2 O2 Flow FiO2 Mean Ox Delivery Rate 04/10 0800 95 Nasal 2.0L Cannula 04/10 0714 60 112/58 04/10 0708 97.4 102 18 92 Room Air 04/10 0000 100 CPAP 04/09 2154 97.8 55 20 118/78 100 Room Air 04/09 1620 91 Nasal 2.0L Cannula 04/09 1510 98.6 91 20 134/70 92 Nasal 2.0L Cannula Intake & Output 04/10 1600 04/10 0800 04/10 0000 Intake Total 470 400 Output Total 500 Balance -30 400 Intake, IV 270 Intake, Oral 200 400 Number 0 Bowel Movements Output, Urine 500 Physical Exam General Appearance: Alert, Oriented X3, Cooperative, No Acute Distress Skin: No Rashes, No Breakdown, No Significant Lesion HEENT: Atraumatic, PERRLA, EOMI, Mucous Membr. moist/pink Neck: Supple, No JVD Cardiovascular: Normal S1, Normal S2, No Murmurs Lungs: bilateral rales and minimal wheezes Abdomen: Normal Bowel Sounds, Soft, No Tenderness Neurological: Normal Speech, Strength at 5/5 X4 Ext Extremities: No Clubbing, No Cyanosis, 1+ pitting edema Vascular: Normal Pulses Assessment/Plan Assessment: 75-year-old male with past medical history of A. fib on Xeralto, hypertension, anxiety, hyperlipidemia, presented to [facility] complaining of shortness of breath, his pulse ox in the ED was around 90% on room air, heart rate [address] chest shows significant bilateral bronchopneumonia, sputum culture today due to gram negative rods (H influenza or Moraxella), patient also has history of severe obstructive sleep apnea on CPAP, morbid obesity #Bilateral bronchopneumonia We'll continue ceftriaxone and azithromycin (day 3 Prednisone 40 by mouth daily for a total of 57 days Follow-up on sputum culture for susceptibility and identification Start Budesonide neb duoneb BID for 2 days Keep head of bed elevated Continue PPI TRC, Nebs atc Robitussin with codeine 10 mL twice a day when necessary #Afib RVR: Continue beta trevor and Xarelto #Transamanitis: AST bImproving today This is first time LFT elevated. Hold statin Will still administer Tylenol if febrile #HTN: Con't valsartan Restart Lasix 20 mg by mouth Anxiety: Con't home ativan FC Heart healthy diet dvt ppx with Xeralto Problem List: 1. Pneumonia 2. Atrial fibrillation Pain Ratin Pain Location: n/a Pain Goal: Remain pain free Pain Plan: [facility] Tomorrow's Labs & Rationales: cbc bep DVT/Prophylaxis: mechanical, pharmacological Luz Marina Jameson MD 04/10/17 1117: Attending MD Review Statement Attending Statement Attending MD Statement: examined this patient, discuss w/resident/PA/ENERGY SALES CONSULTANT, agreed w/resident/PA/ENERGY SALES CONSULTANT, reviewed EMR data (avail) Attending Assessment/Plan: 72M PMH atrial fibrillation on Xarelto, HTN, HLD, YURY presenting with 4 days of productive cough, dyspnea, and wheezing, found to be hypoxic in ED to 89% on room air, with imaging showing multilobar pneumonia. CTA chest negative for PE. Rate controlled atrial fibrillation. Patient feels a bit better today. He is breathing comfortably, still requiring supplemental oxygen. Lung exam improved. Sputum culture growing gram negative rods. AFVSS. 1. Bilateral lower lobe pneumonia 2. Hypoxia 3. Paroxysmal atrial fibrillation Plan - Continue on general medicine - Ceftriaxone and Azithromycin - Follow sputum culture - Follow pulmonary recommendations - Continue Prednisone, Budesonide, Codeine PRN - Nebulizer treatments - Continue home medications - DVT PPx
[2017-04-10 07:14] VITALS: BP 112/58
--- NOTE | 2017-04-10 09:39 | PN- Pulmonary ---
Subjective HPI/Critical Care Issues: Still coughing and wheezing Sputum production till Objective Current Medications: Current Medications Sig/Rick Start time Last Medication Dose Route Stop Time Status Admin Acetaminophen 650 MG Q6P PRN 04/08 0945 AC PO Albuterol Sulfate 2.5 ML EVERY 4 HRS/AWAKE 04/09 0800 AC 04/09 INH 2025 Azithromycin 500 MG Q24H 04/09 0500 AC 04/10 Dextrose/Water 250 ML IV 0448 Benzonatate 100 MG TID 04/08 2200 AC 04/09 PO 2049 Budesonide 0.5 MG Q12 04/09 2200 AC 04/09 INH 2025 Budesonide/ 2 PUF BID 04/08 2245 DC Formoterol Fumarate INH Budesonide/ 2 PUF BID 04/08 1409 DC 04/09 Formoterol Fumarate INH 1036 Ceftriaxone Sodium 1,000 MG Q24H 04/09 0600 AC 04/10 IV 0644 Fish Oil 1,050 MG DAILY 04/08 1000 AC 04/09 PO 1036 Furosemide 20 MG DAILY 04/10 1000 AC PO Guaifenesin 10 ML Q6P PRN 04/09 0930 AC 04/09 PO 1030 Guaifenesin/Codeine 10 ML BID PRN 04/09 1115 AC 04/10 Phosphate PO 0615 Ibuprofen 600 MG Q6P PRN 04/08 0945 AC PO Insulin Aspart 0 TIDAC 04/08 1200 AC 04/09 SC 1908 Ipratropium [place] 2.5 ML EVERY 4 HRS/AWAKE 04/09 1200 AC 04/09 INH 2025 Loratadine 10 MG DAILY 04/08 1000 AC 04/09 PO 1036 Lorazepam 0.5 MG BID 04/08 1000 AC 04/09 PO 04/15 0959 2050 Losartan Potassium 100 MG DAILY 04/08 1000 AC 04/09 PO 1043 Metoprolol Succinate 100 MG AT BEDTIME 04/08 2200 AC 04/09 PO 2050 Omeprazole 20 MG DAILY AC 04/09 0700 AC 04/10 PO 0611 Oxycodone/ 1 TAB Q6P PRN 04/08 0945 AC Acetaminophen PO Polyethylene Glycol 17 GM DAILY PRN 04/09 1000 AC PO Prednisone 40 MG DAILY 04/09 1019 AC 04/09 PO 1235 Rivaroxaban 20 MG 1700 04/08 1700 AC 04/09 PO 1620 Senna/Docusate Sodium 1 TAB BID PRN 04/09 1000 AC PO Vital Signs & I&O Last 24 Hrs of Vitals and I&O: Vital Signs Date Time Temp Pulse Resp B/P B/P Pulse O2 O2 Flow FiO2 Mean Ox Delivery Rate 04/10 0800 95 Nasal 2.0L Cannula 04/10 0714 60 112/58 04/10 0708 97.4 102 18 92 Room Air 04/10 0000 100 CPAP 04/09 2154 97.8 55 20 118/78 100 Room Air 04/09 1620 91 Nasal 2.0L Cannula 04/09 1510 98.6 91 20 134/70 92 Nasal 2.0L Cannula 04/09 1043 104 124/62 Intake & Output 04/10 1600 04/10 0800 04/10 0000 Intake Total 470 400 Output Total 500 Balance -30 400 Intake, IV 270 Intake, Oral 200 400 Number 0 Bowel Movements Output, Urine 500 Impression/Plan Impression/Plan Impression/Plan: CT IMPRESSION: 1. No pulmonary embolism. 2. Diffuse bronchial filling defects with associated patchy airspace opacities seen in both lungs. Considerations include multifocal pneumonia versus aspiration. Prominent mediastinal lymph nodes are likely reactive. 3. No acute findings in the abdomen or pelvis. VTE: negative DICTATED BY: Mili CHÁVEZ,Camron DATE/TIME DICTATED:04/08/17647 REINALDO eomi neck supple chest mild crackles and diffuse wheezing abd obese no sig edema IMPRESSION 72 yo male with PMH of afib on xarelto, htn, anxiety, hld, who comes in with CC of SOB and cough. In ED triage he was satting 89-90% on RA and HR 110 in a.fib. ISSUES SIg bilateral bronchopneumonia/ with sig cough / with prob H. INflu or Moraxella No clinical history sugg of aspiration, however pt does have gerd Severe edmundo on cpap Mild to mod Obstructive and restrictive lung disease, Morbid obesity REcent loss of his spouse Altered lfts REC Prednisone 40 qd for 5-7 days Azitro and ceftriaxone for now Await sputum culture Budesonide neb bid for two days with duoneb jhoana ask resp to do this Keep hob up PPI Cont other meds Nebs atc Robutussin with codeine 10 ml bid prn will follow
[2017-04-10 12:11] LABS: ABSOLUTE BASOPHIL COUNT 0 /CUMM (0.0-0.2); ABSOLUTE EOSINOPHIL COUNT 0 /CUMM (0.0-0.7); ABSOLUTE GRANULOCYTE CT 12.4 /CUMM (1.4-6.5); ABSOLUTE LYMPH COUNT 1.2 /CUMM (1.2-3.4); ABSOLUTE MONOCYTE COUNT 1.8 /CUMM (0.10-0.60); BASOPHIL % 0.2 % (0.0-2.0); EOSINOPHIL % 0 % (0-5); GRANULOCYTE % 80.6 % (42.2-75.2); HEMATOCRIT 41.8 % (42-52); MEAN CORPUSCULAR HGB CONC 32.7 G/DL (33.0-37.0); MEAN CORPUSCULAR VOLUME 100.7 FL (80.0-94.0); MEAN PLATELET VOLUME 10.1 FL (7.4-10.4); PLATELET COUNT 186 /CUMM (130-400); RBC DISTRIBUTION WIDTH 15.1 % (11.5-14.5); RED BLOOD CELL CT 4.15 /CUMM (4.70-6.10); WHITE BLOOD CELL COUNT 15.4 /CUMM (4.8-10.8)
[2017-04-10 14:57] VITALS: BP 107/53
[2017-04-10] MEDS ORDERED: GUAIFENESI100 MG/5 M PO (15:51)
[2017-04-10] MEDS ORDERED: SENNA PLUS TAB1 EACH PO (15:51)
[2017-04-10] MEDS ORDERED: MIRALAX119 GM PO (15:51)
--- NOTE | 2017-04-10 15:52 | Patient Discharge Instructions ---
Discharge Instructions General Discharge Information You were seen/treated for: pneumonia Special Instructions: 1- please follow up with your PCP in 1 week of Dc 2- please follow up with your professional skateboarder in1 week of DC Diet Continue normal diet: Yes Activity Full Activity/No Limits: Yes Acute Coronary Syndrome Inclusion Criteria At DC or during hospital stay patient has or had the following: ACS DIAGNOSIS No Discharge Core Measures Meds if any: Prescribed or Continued at Discharge Meds if any: NOT Prescribed or Continued at Discharge Congestive Heart Failure Inclusion Criteria At DC or during hospital stay patient has or had the following: CHF DIAGNOSIS No Discharge Core Measures Meds if any: Prescribed or Continued at Discharge Meds if any: NOT Prescribed or Continued at Discharge Cerebrovascular accident Inclusion Criteria At DC or during hospital stay patient has or had the following: CVA/TIA Diagnosis No Discharge Core Measures Meds if any: Prescribed or Continued at Discharge Meds if any: NOT Prescribed or Continued at Discharge Venous thromboembolism Inclusion Criteria VTE Diagnosis No VTE Type NONE VTE Confirmed by (Test) NONE Discharge Core Measures - Per Current guidelines, there needs to be overlap - treatment for the first 5 days of Warfarin therapy. - If discharged on Warfarin prior to 5 days of - overlap therapy, the patient will need to be - assessed for post discharge needs including - *Post discharge parental anticoagulation - *Warfarin and/or parental anticoagulation education - *Follow up date to check INR post discharge At least 5 days overlap therapy as Inpatient No Meds if any: Prescribed or Continued at Discharge Note: Overlap Therapy is Warfarin and Anticoagulant Meds if any: NOT Prescribed or Continued at Discharge
[2017-04-10 19:00] VITALS: BP 107/53
[2017-04-10 21:00] VITALS: BP 107/53
[2017-04-10 22:27] VITALS: BP 118/70
[2017-04-10 23:00] VITALS: BP 118/70
[2017-04-11 01:00] VITALS: BP 118/70
[2017-04-11 06:30] VITALS: BP 105/65
--- NOTE | 2017-04-11 07:59 | PN- Housestaff ---
Festus CHÁVEZ,Shadia 04/11/17 0759: Subjective Follow-up For: Hypoxia2/2 multilobular PNA Afib on xarelto Transamanitis Subjective: Patient is seen and examined at bedside, he continues to complain of productive cough with expectoration of brownish sputum, Sputum positive for Actinobacter he denies any fever, chills, chest pain, nausea or vomiting, Review of Systems Constitutional: Denies: no symptoms. Cardiovascular: Denies: no symptoms. Respiratory: Reports: cough, short of breath, sputum production, wheezing. Gastrointestinal: Denies: no symptoms. Genitourinary: Denies: no symptoms. Musculoskeletal: Denies: no symptoms. Skin: Denies: no symptoms. Objective Last 24 Hrs of Vital Signs/I&O Vital Signs Date Time Temp Pulse Resp B/P B/P Pulse O2 O2 Flow FiO2 Mean Ox Delivery Rate 04/11 1500 97.9 92 20 110/60 92 Nasal 3.0L Cannula 04/11 0915 97 Nasal 3.0L Cannula 04/11 0854 94 114/70 04/11 0800 Nasal 2.0L Cannula 04/11 0630 105/65 04/11 0621 97.5 88 20 92 04/11 0100 98.3 98 20 118/70 04/11 0000 Room Air 04/10 2300 98 04/10 2300 98.3 98 20 118/70 04/10 2227 98.3 124 20 118/70 94 Nasal 3.0L Cannula 04/10 2100 97.7 86 20 107/53 04/10 1900 97.7 86 20 107/53 04/10 1646 95 Nasal 2.0L Cannula Intake & Output 04/11 1600 04/11 0800 04/11 0000 Intake Total 100 Output Total 300 Balance -200 Intake, IV 100 Output, Urine 300 Physical Exam General Appearance: Alert, Oriented X3, Cooperative, No Acute Distress HEENT: Atraumatic, PERRLA, EOMI, Mucous Membr. moist/pink Neck: Supple, No JVD Cardiovascular: Regular Rate, Normal S1, Normal S2, No Murmurs Lungs: bilateral wheezes and rales Abdomen: Normal Bowel Sounds, Soft, No Tenderness Neurological: Normal Speech Extremities: No Clubbing, No Cyanosis, No Edema Assessment/Plan Assessment: 75-year-old male with past medical history of A. fib on Xeralto, hypertension, anxiety, hyperlipidemia, presented to [facility] ED complaining of shortness of breath, his pulse ox in the ED was around 90% on room air, heart rate [address] chest shows significant bilateral bronchopneumonia, sputum culture today due to gram negative rods (H influenza or Moraxella), patient also has history of severe obstructive sleep apnea on CPAP, morbid obesity #Bilateral bronchopneumonia DC ceftriaxone and azithromycin (day 3 start Ceftaz 1 gm Q 12 Prednisone 40 by mouth daily for a total of 57 days sputum culture positive for Actinobacter Start Budesonide neb duoneb BID for 2 days Keep head of bed elevated Continue PPI TRC, Nebs atc Robitussin with codeine 10 mL twice a day when necessary #Afib RVR: Continue beta trevor and Xarelto #Transamanitis: AST bImproving today This is first time LFT elevated. Hold statin Will still administer Tylenol if febrile #HTN: Con't valsartan SRAVAN: hold Lsix monitor kidney function Anxiety: Con't home ativan FC Heart healthy diet dvt ppx with Xeralto Problem List: 1. Pneumonia 2. Atrial fibrillation Pain Ratin Pain Location: n/a Pain Goal: Remain pain free Pain Plan: per pathway Tomorrow's Labs & Rationales: cbc bep DVT/Prophylaxis: mechanical, pharmacological Luz Marina Jameson MD 04/11/17 1527: Attending MD Review Statement Attending Statement Attending MD Statement: examined this patient, discuss w/resident/PA/TECHNICAL PROPOSAL WRITER, agreed w/resident/PA/TECHNICAL PROPOSAL WRITER, reviewed EMR data (avail) Attending Assessment/Plan: 72M PMH atrial fibrillation on Xarelto, HTN, HLD, YURY presenting with 4 days of productive cough, dyspnea, and wheezing, found to be hypoxic in ED to 89% on room air, with imaging showing multilobar pneumonia. CTA chest negative for PE. Rate controlled atrial fibrillation. Patient feels a bit better today. He is breathing comfortably, still requiring supplemental oxygen. Lung exam improved. Sputum culture growing Citrobacter. AFVSS. 1. Bilateral lower lobe pneumonia secondary to Citrobacter 2. Hypoxia 3. Paroxysmal atrial fibrillation Plan - Continue on general medicine - Continue Ceftazidime - Follow pulmonary recommendations - Continue Prednisone, Budesonide, Codeine PRN - Nebulizer treatments - Continue home medications - DVT PPx - Anticipated discharge tomorrow if continues to improve
[2017-04-11 08:59] LABS: ABSOLUTE BASOPHIL COUNT 0 /CUMM (0.0-0.2); ABSOLUTE EOSINOPHIL COUNT 0 /CUMM (0.0-0.7); ABSOLUTE GRANULOCYTE CT 7.9 /CUMM (1.4-6.5); ABSOLUTE LYMPH COUNT 1.2 /CUMM (1.2-3.4); ABSOLUTE MONOCYTE COUNT 1.1 /CUMM (0.10-0.60); BASOPHIL % 0.3 % (0.0-2.0); EOSINOPHIL % 0 % (0-5); GRANULOCYTE % 76.7 % (42.2-75.2); HEMATOCRIT 41.9 % (42-52); MEAN CORPUSCULAR HGB 32.7 PG (27.0-31.0); MEAN CORPUSCULAR HGB CONC 32.3 G/DL (33.0-37.0); MEAN CORPUSCULAR VOLUME 101.4 FL (80.0-94.0); MEAN PLATELET VOLUME 10.3 FL (7.4-10.4); PLATELET COUNT 168 /CUMM (130-400); RBC DISTRIBUTION WIDTH 15.8 % (11.5-14.5); RED BLOOD CELL CT 4.13 /CUMM (4.70-6.10); WHITE BLOOD CELL COUNT 10.3 /CUMM (4.8-10.8)
--- NOTE | 2017-04-11 13:25 | PN- Pulmonary ---
Subjective HPI/Critical Care Issues: Still coughing and wheezing Has acitinobacter in the sputum Objective Current Medications: Current Medications Sig/Rick Start time Last Medication Dose Route Stop Time Status Admin Acetaminophen 650 MG Q6P PRN 04/08 0945 AC PO Albuterol Sulfate 2.5 ML EVERY 4 HRS/AWAKE 04/09 0800 AC 04/11 INH 0909 Ampicillin Sodium/ 3,000 MG Q6H 04/11 0230 DC 04/11 Sulbactam Sodium IV 0856 Sodium Chloride 100 ML Ampicillin Sodium/ 3,000 MG Q6 04/10 1800 DC 04/10 Sulbactam Sodium IV 2028 Sodium Chloride 100 ML Azithromycin 500 MG Q24H 04/09 0500 DC 04/10 Dextrose/Water 250 ML IV 0448 Benzonatate 100 MG TID 04/08 2200 AC 04/11 PO 0856 Budesonide 0.5 MG Q12 04/09 2200 AC 04/11 INH 0910 Ceftazidime 1,000 MG IQ8 04/11 1600 AC IV Ceftriaxone Sodium 1,000 MG Q24H 04/09 0600 DC 04/10 IV 0644 Fish Oil 1,050 MG DAILY 04/08 1000 AC 04/10 PO 1147 Furosemide 20 MG DAILY 04/10 1000 DC PO Guaifenesin 10 ML Q6P PRN 04/09 0930 AC 04/09 PO 1030 Guaifenesin/Codeine 10 ML BID PRN 04/09 1115 AC 04/11 Phosphate PO 0240 Ibuprofen 600 MG Q6P PRN 04/08 0945 AC PO Insulin Aspart 0 TIDAC 04/08 1200 AC 04/10 SC 1705 Ipratropium [place] 2.5 ML EVERY 4 HRS/AWAKE 04/09 1200 AC 04/11 INH 0910 Loratadine 10 MG DAILY 04/08 1000 AC 04/11 PO 0857 Lorazepam 0.5 MG BID 04/08 1000 AC 04/11 PO 04/15 0959 0900 Losartan Potassium 100 MG DAILY 04/08 1000 AC 04/11 PO 0854 Metoprolol Succinate 100 MG AT BEDTIME 04/08 2200 AC 04/10 PO 2237 Omeprazole 20 MG DAILY AC 04/09 0700 AC 04/11 PO 0539 Oxycodone/ 1 TAB Q6P PRN 04/08 0945 AC Acetaminophen PO Polyethylene Glycol 17 GM DAILY PRN 04/09 1000 AC PO Prednisone 40 MG DAILY 04/09 1019 AC 04/11 PO 0853 Rivaroxaban 20 MG 1700 04/08 1700 AC 04/10 PO 1705 Senna/Docusate Sodium 1 TAB BID PRN 04/09 1000 AC PO Vital Signs & I&O Last 24 Hrs of Vitals and I&O: Vital Signs Date Time Temp Pulse Resp B/P B/P Pulse O2 O2 Flow FiO2 Mean Ox Delivery Rate 04/11 0915 97 Nasal 3.0L Cannula 04/11 0854 94 114/70 04/11 0630 105/65 04/11 0621 97.5 88 20 92 04/11 0100 98.3 98 20 118/70 04/11 0000 Room Air 04/10 2300 98 04/10 2300 98.3 98 20 118/70 04/10 2227 98.3 124 20 118 94 Nasal 3.0L Cannula 04/10 2100 97.7 86 20 107/53 04/10 1900 97.7 86 20 107/53 04/10 1646 95 Nasal 2.0L Cannula 04/10 1457 97.7 86 20 107/53 93 Room Air Intake & Output 04/11 1600 04/11 0800 04/11 0000 Intake Total 100 Output Total 300 Balance -200 Intake, IV 100 Output, Urine 300 Impression/Plan Impression/Plan Impression/Plan: CT IMPRESSION: 1. No pulmonary embolism. 2. Diffuse bronchial filling defects with associated patchy airspace opacities seen in both lungs. Considerations include multifocal pneumonia versus aspiration. Prominent mediastinal lymph nodes are likely reactive. 3. No acute findings in the abdomen or pelvis. VTE: negative DICTATED BY: Mili CHÁVEZ,Camron DATE/TIME DICTATED:04/08/17647 REINALDO eomi neck supple chest mild crackles and diffuse wheezing abd obese no sig edema IMPRESSION 72 yo male with PMH of afib on xarelto, htn, anxiety, hld, who comes in with CC of SOB and cough. In ED triage he was satting 89-90% on RA and HR 110 in a.fib. ISSUES SIg bilateral bronchopneumonia/ with sig cough due to acitenobacter infection Severe edmundo on cpap Mild to mod Obstructive and restrictive lung disease, Morbid obesity REcent loss of his spouse Altered lfts REC Prednisone 40 qd for 5-7 days DC current abx and start ceftaz Can dc budesonide nebs in am and change to symbicort Keep hob up PPI Cont other meds Nebs atc Robutussin with codeine 10 ml bid prn will follow
[2017-04-11 15:00] VITALS: BP 110/60
[2017-04-11 20:00] VITALS: BP 110/60
[2017-04-11 22:00] VITALS: BP 110/60
[2017-04-11 23:54] VITALS: BP 133/83
[2017-04-12] VITALS (8 sets, daily range): BP systolic 113–148; BP diastolic 70–83
[2017-04-12 08:28] LABS: ABSOLUTE BASOPHIL COUNT 0 /CUMM (0.0-0.2); ABSOLUTE EOSINOPHIL COUNT 0 /CUMM (0.0-0.7); ABSOLUTE GRANULOCYTE CT 5.9 /CUMM (1.4-6.5); ABSOLUTE LYMPH COUNT 2.1 /CUMM (1.2-3.4); ABSOLUTE MONOCYTE COUNT 0.8 /CUMM (0.10-0.60); BASOPHIL % 0.3 % (0.0-2.0); EOSINOPHIL % 0.5 % (0-5); GRANULOCYTE % 66.2 % (42.2-75.2); HEMATOCRIT 41.3 % (42-52); MEAN CORPUSCULAR HGB 32.8 PG (27.0-31.0); MEAN CORPUSCULAR HGB CONC 32.9 G/DL (33.0-37.0); MEAN CORPUSCULAR VOLUME 99.8 FL (80.0-94.0); MEAN PLATELET VOLUME 9.1 FL (7.4-10.4); PLATELET COUNT 194 /CUMM (130-400); RBC DISTRIBUTION WIDTH 14.9 % (11.5-14.5); RED BLOOD CELL CT 4.14 /CUMM (4.70-6.10); WHITE BLOOD CELL COUNT 8.9 /CUMM (4.8-10.8)
--- NOTE | 2017-04-12 08:46 | PN- Housestaff ---
Festus CHÁVEZ,Shadia 04/12/17 0846: Subjective Follow-up For: Hypoxia2/2 multilobular PNA Afib on xarelto Transamanitis Subjective: Patient is seen and examined at bedside, he continues to complain of productive cough with expectoration of brownish sputum, he denies any fever, chills, chest pain, nausea or vomiting, Review of Systems Constitutional: Denies: no symptoms. Cardiovascular: Denies: no symptoms. Respiratory: Reports: cough, sputum production. Gastrointestinal: Denies: no symptoms. Genitourinary: Denies: no symptoms. Musculoskeletal: Denies: no symptoms. Objective Last 24 Hrs of Vital Signs/I&O Vital Signs Date Time Temp Pulse Resp B/P B/P Pulse O2 O2 Flow FiO2 Mean Ox Delivery Rate 04/12 0905 84 132/70 04/12 0818 94 Nasal 2.0L Cannula 04/12 0800 Nasal 2.0L Cannula 04/12 0600 97.6 84 20 132/70 04/12 0600 97.6 84 20 132/70 95 Room Air 04/12 0400 97.8 100 20 113/83 04/12 0200 97.8 100 20 113/83 04/12 0000 97.8 100 20 113/83 04/11 2354 97.8 100 20 133/83 96 Nasal 2.0L Cannula 04/11 2200 97.9 92 20 110/60 04/11 2135 68 124/64 04/11 2000 97.9 92 20 110/60 04/11 1800 94 Nasal 2.0L Cannula 04/11 1600 Nasal 2.0L Cannula 04/11 1500 97.9 92 20 110/60 92 Nasal 3.0L Cannula Intake & Output 04/12 1600 04/12 0800 04/12 0000 Intake Total 420 210 Output Total Balance 420 210 Intake, IV 20 10 Intake, Oral 400 200 Physical Exam General Appearance: Alert, Oriented X3, Cooperative, No Acute Distress HEENT: Atraumatic, PERRLA, EOMI, Mucous Membr. moist/pink Neck: Supple, No JVD Cardiovascular: Normal S1, Normal S2, No Murmurs Lungs: rales and wheezes Abdomen: Normal Bowel Sounds, Soft, No Tenderness Extremities: No Clubbing, No Cyanosis, No Edema Assessment/Plan Assessment: 75-year-old male with past medical history of A. fib on Xeralto, hypertension, anxiety, hyperlipidemia, presented to [facility] complaining of shortness of breath, his pulse ox in the ED was around 90% on room air, heart rate [address] chest shows significant bilateral bronchopneumonia, sputum culture today due to gram negative rods (H influenza or Moraxella), patient also has history of severe obstructive sleep apnea on CPAP, morbid obesity #Bilateral bronchopneumonia DC ceftriaxone and azithromycin (day 3 start Ceftaz 1 gm Q 12 day 2 Prednisone 40 by mouth daily for a total of 57 days sputum culture positive for Actinobacter Start Budesonide neb duoneb BID for 2 days Keep head of bed elevated Continue PPI TRC, Nebs atc Robitussin with codeine 10 mL twice a day when necessary #Afib RVR: Continue beta trevor and Xarelto #Transamanitis: AST bImproving today This is first time LFT elevated. Hold statin Will still administer Tylenol if febrile #HTN: Con't valsartan SRAVAN: hold Lsix monitor kidney function Anxiety: Con't home ativan FC Heart healthy diet dvt ppx with Xeralto Problem List: 1. Pneumonia 2. Atrial fibrillation Pain Ratin Pain Location: n/a Pain Goal: Remain pain free Pain Plan: pathway Tomorrow's Labs & Rationales: cbc bep DVT/Prophylaxis: mechanical, pharmacological Luz Marina Jameson MD 04/12/17 1302: Attending MD Review Statement Attending Statement Attending MD Statement: examined this patient, discuss w/resident/PA/RN MATERNAL CHILD, agreed w/resident/PA/RN MATERNAL CHILD, reviewed EMR data (avail) Attending Assessment/Plan: 72M PMH atrial fibrillation on Xarelto, HTN, HLD, YURY presenting with 4 days of productive cough, dyspnea, and wheezing, found to be hypoxic in ED to 89% on room air, with imaging showing multilobar pneumonia. CTA chest negative for PE. Rate controlled atrial fibrillation. Patient feels a bit better today. He is breathing comfortably, still requiring supplemental oxygen. Lung exam improved. Sputum culture growing Citrobacter. AFVSS. 1. Bilateral lower lobe pneumonia secondary to Citrobacter 2. Hypoxia 3. Paroxysmal atrial fibrillation Plan - Continue on general medicine - Continue Ceftazidime - Follow pulmonary recommendations - Continue Prednisone, Budesonide, Codeine PRN - Nebulizer treatments - Continue home medications - DVT PPx - Anticipated discharge tomorrow if continues to improve
--- NOTE | 2017-04-12 14:10 | PN- Pulmonary ---
Subjective HPI/Critical Care Issues: Much improved stable Objective Current Medications: Current Medications Sig/Rick Start time Last Medication Dose Route Stop Time Status Admin Acetaminophen 650 MG Q6P PRN 04/08 0945 AC PO Albuterol Sulfate 2.5 ML EVERY 4 HRS/AWAKE 04/09 0800 AC 04/12 INH 1151 Benzonatate 100 MG TID 04/08 2200 AC 04/12 PO 0905 Budesonide 0.5 MG Q12 04/09 2200 DC 04/11 INH 1800 Budesonide/ 2 PUF BID 04/12 1158 AC Formoterol Fumarate INH Ceftazidime 1,000 MG IQ8 04/11 1600 AC 04/12 IV 0905 Fish Oil 1,050 MG DAILY 04/08 1000 AC 04/12 PO 0905 Guaifenesin 10 ML Q6P PRN 04/09 0930 AC 04/09 PO 1030 Guaifenesin/Codeine 10 ML BID PRN 04/09 1115 AC 04/12 Phosphate PO 0400 Ibuprofen 600 MG Q6P PRN 04/08 0945 AC PO Insulin Aspart 0 TIDAC 04/08 1200 AC 04/11 SC 1729 Ipratropium [place] 2.5 ML EVERY 4 HRS/AWAKE 04/09 1200 AC 04/12 INH 1151 Loratadine 10 MG DAILY 04/08 1000 AC 04/12 PO 0905 Lorazepam 0.5 MG BID 04/08 1000 AC 04/12 PO 04/15 0959 0905 Losartan Potassium 100 MG DAILY 04/08 1000 AC 04/12 PO 0905 Metoprolol Succinate 100 MG AT BEDTIME 04/08 2200 AC 04/11 PO 2135 Omeprazole 20 MG DAILY AC 04/09 0700 AC 04/12 PO 0614 Oxycodone/ 1 TAB Q6P PRN 04/08 0945 AC Acetaminophen PO Polyethylene Glycol 17 GM DAILY PRN 04/09 1000 AC PO Prednisone 40 MG DAILY 04/09 1019 AC 04/12 PO 0905 Rivaroxaban 20 MG 1700 04/08 1700 AC 04/11 PO 1729 Senna/Docusate Sodium 1 TAB BID PRN 04/09 1000 AC 04/12 PO 0906 Sodium Chloride 2 SPRAY Q4P PRN 04/12 0015 AC HEMANT Vital Signs & I&O Last 24 Hrs of Vitals and I&O: Vital Signs Date Time Temp Pulse Resp B/P B/P Pulse O2 O2 Flow FiO2 Mean Ox Delivery Rate 04/12 1352 98.0 77 18 122/80 93 Room Air Room Air 04/12 0905 84 132/70 04/12 0818 94 Nasal 2.0L Cannula 04/12 0800 Nasal 2.0L Cannula 04/12 0600 97.6 84 20 132/70 04/12 0600 97.6 84 20 132/70 95 Room Air 04/12 0400 97.8 100 20 113/83 04/12 0200 97.8 100 20 113/83 04/12 0000 97.8 100 20 113/83 04/11 2354 97.8 100 20 133/83 96 Nasal 2.0L Cannula 04/11 2200 97.9 92 20 110/60 04/11 2135 68 124/64 04/11 2000 97.9 92 20 110/60 04/11 1800 94 Nasal 2.0L Cannula 04/11 1600 Nasal 2.0L Cannula 04/11 1500 97.9 92 20 110/60 92 Nasal 3.0L Cannula Intake & Output 04/12 1600 04/12 0800 04/12 0000 Intake Total 420 210 Output Total Balance 420 210 Intake, IV 20 10 Intake, Oral 400 200 Impression/Plan Impression/Plan Impression/Plan: CT IMPRESSION: 1. No pulmonary embolism. 2. Diffuse bronchial filling defects with associated patchy airspace opacities seen in both lungs. Considerations include multifocal pneumonia versus aspiration. Prominent mediastinal lymph nodes are likely reactive. 3. No acute findings in the abdomen or pelvis. VTE: negative DICTATED BY: Mili CHÁVEZ,Camron DATE/TIME DICTATED:04/08/17647 REINALDO eomi neck supple chest mild crackles and diffuse wheezing abd obese no sig edema IMPRESSION 72 yo male with PMH of afib on xarelto, htn, anxiety, hld, who comes in with CC of SOB and cough. In ED triage he was satting 89-90% on RA and HR 110 in a.fib. ISSUES SIg bilateral bronchopneumonia/ with sig cough due to acitenobacter infection Severe edmundo on cpap Mild to mod Obstructive and restrictive lung disease, Morbid obesity REcent loss of his spouse Altered lfts REC Prednisone 40 qd for 5-7 days Ceftaz iv Symbicort Keep hob up PPI Cont other meds Nebs atc Robutussin with codeine 10 ml bid prn will follow
[2017-04-13] VITALS (7 sets, daily range): BP systolic 116–158; BP diastolic 72–80
--- NOTE | 2017-04-13 07:32 | PN- Housestaff ---
Festus CHÁVEZ,Shadia 04/13/17 0732: Subjective Follow-up For: Hypoxia2/2 multilobular PNA Afib on xarelto Transamanitis Subjective: Hypoxia2/2 multilobular PNA Afib on xarelto Transamanitis Review of Systems Constitutional: Denies: no symptoms. Cardiovascular: Denies: no symptoms. Respiratory: Reports: cough, short of breath, sputum production. Gastrointestinal: Denies: no symptoms. Genitourinary: Denies: no symptoms. Musculoskeletal: Denies: no symptoms. Objective Last 24 Hrs of Vital Signs/I&O Vital Signs Date Time Temp Pulse Resp B/P B/P Pulse O2 O2 Flow FiO2 Mean Ox Delivery Rate 04/13 1417 98.3 106 18 116/72 93 Nasal 2.0L Cannula 04/13 1102 86 126/82 04/13 0840 96 Nasal 2.0L Cannula 04/13 0600 97.8 86 20 132/74 04/13 0557 97.8 86 22 132/74 94 Room Air 04/13 0400 97.5 67 20 148/76 04/13 0200 97.5 95 20 148/76 04/13 0000 97.5 95 20 148/76 04/13 0000 95 Nasal 1.0L Cannula 04/12 2238 97.5 67 20 148/76 94 Nasal 1.0L Cannula 04/12 2200 98.0 77 18 122/80 04/12 2159 98.7 100 20 144/80 04/12 2000 98.0 77 18 122/80 04/12 1615 90 Room Air 04/12 1600 Nasal 1.0L Cannula Intake & Output 04/13 1600 04/13 0800 04/13 0000 Intake Total 600 500 Output Total Balance 600 500 Intake, Oral 600 500 Physical Exam General Appearance: Alert, Oriented X3, Cooperative, No Acute Distress HEENT: Atraumatic, PERRLA, EOMI, Mucous Membr. moist/pink Cardiovascular: Normal S1, Normal S2, No Murmurs Lungs: bilateral rales and wheezes Abdomen: Normal Bowel Sounds, Soft, No Tenderness Neurological: Normal Speech, Strength at 5/5 X4 Ext, Normal Tone Extremities: No Clubbing, No Cyanosis, No Edema Assessment/Plan Assessment: 75-year-old male with past medical history of A. fib on Xeralto, hypertension, anxiety, hyperlipidemia, presented to [place] ED complaining of shortness of breath, his pulse ox in the ED was around 90% on room air, heart rate [address] chest shows significant bilateral bronchopneumonia, sputum culture today due to gram negative rods (H influenza or Moraxella), patient also has history of severe obstructive sleep apnea on CPAP, morbid obesity #Bilateral bronchopneumonia continue Ceftaz 1 gm Q 12 day 3 Prednisone 40 by mouth daily for a total of 57 days sputum culture positive for Actinobacter Start Budesonide neb duoneb BID for 2 days Keep head of bed elevated Continue PPI TRC, Nebs atc Robitussin with codeine 10 mL twice a day when necessary #Afib RVR: Continue beta trevor and Xarelto #Transamanitis: AST bImproving today This is first time LFT elevated. Hold statin Will still administer Tylenol if febrile #HTN: Con't valsartan SRAVAN: hold Lsix monitor kidney function Anxiety: Con't home ativan The patient continues to be stable, he will be discharged home tomorrow on by mouth Augmentin FC Heart healthy diet dvt ppx with Xeralto Problem List: 1. Pneumonia 2. Atrial fibrillation Pain Ratin Pain Location: n/a Pain Goal: Remain pain free Pain Plan: pathway Tomorrow's Labs & Rationales: cbc bep DVT/Prophylaxis: mechanical, pharmacological Luz Marina Jameson MD 04/13/17 1138: Attending MD Review Statement Attending Statement Attending MD Statement: examined this patient, discuss w/resident/PA/RAIL DOWELING MACHINE OPERATOR, agreed w/resident/PA/RAIL DOWELING MACHINE OPERATOR, reviewed EMR data (avail) Attending Assessment/Plan: 72M PMH atrial fibrillation on Xarelto, HTN, HLD, YURY presenting with 4 days of productive cough, dyspnea, and wheezing, found to be hypoxic in ED to 89% on room air, with imaging showing multilobar pneumonia. CTA chest negative for PE. Rate controlled atrial fibrillation. Patient feels a bit better today. He is breathing comfortably, still requiring supplemental oxygen. Lung exam improved. Sputum culture growing Citrobacter. AFVSS. 1. Bilateral lower lobe pneumonia secondary to Citrobacter 2. Hypoxia 3. Paroxysmal atrial fibrillation Plan - Continue on general medicine for now, anticipated discharge later today or tomorrow morning depending on pulmonary recommendations - Continue Ceftazidime, Augmentin on discharge - Follow pulmonary recommendations, outpatient follow up - Continue Prednisone, Budesonide, Codeine PRN - Nebulizer treatments - Continue home medications - DVT PPx
[2017-04-13 08:35] LABS: ABSOLUTE BASOPHIL COUNT 0 /CUMM (0.0-0.2); ABSOLUTE EOSINOPHIL COUNT 0 /CUMM (0.0-0.7); ABSOLUTE GRANULOCYTE CT 7.3 /CUMM (1.4-6.5); ABSOLUTE LYMPH COUNT 2.3 /CUMM (1.2-3.4); ABSOLUTE MONOCYTE COUNT 0.6 /CUMM (0.10-0.60); BASOPHIL % 0.3 % (0.0-2.0); EOSINOPHIL % 0.4 % (0-5); GRANULOCYTE % 70.6 % (42.2-75.2); HEMATOCRIT 42.1 % (42-52); MEAN CORPUSCULAR HGB 32.7 PG (27.0-31.0); MEAN CORPUSCULAR HGB CONC 32.7 G/DL (33.0-37.0); MEAN CORPUSCULAR VOLUME 100.1 FL (80.0-94.0); MEAN PLATELET VOLUME 9.7 FL (7.4-10.4); PLATELET COUNT 197 /CUMM (130-400); RBC DISTRIBUTION WIDTH 14.8 % (11.5-14.5); RED BLOOD CELL CT 4.21 /CUMM (4.70-6.10); WHITE BLOOD CELL COUNT 10.3 /CUMM (4.8-10.8)
[2017-04-13] MEDS ORDERED: AUGMENTIN 875-1 EACH PO (11:04)
[2017-04-13] MEDS ORDERED: PREDNISONE10 M2 PO (11:14)
[2017-04-13] MEDS ORDERED: GUAIFENESI100 MG/5 M PO (11:15)
[2017-04-13] MEDS ORDERED: SENNA PLUS TAB1 EACH PO (11:15)
[2017-04-13] MEDS ORDERED: MIRALAX119 GM PO (11:15)
--- NOTE | 2017-04-13 13:47 | PN- Pulmonary ---
Subjective HPI/Critical Care Issues: still coughing and wheezing fatigue Objective Current Medications: Current Medications Sig/Rick Start time Last Medication Dose Route Stop Time Status Admin Acetaminophen 650 MG Q6P PRN 04/08 0945 AC PO Albuterol Sulfate 2.5 ML EVERY 4 HRS/AWAKE 04/09 0800 AC 04/13 INH 1251 Ampicillin Sodium/ 3,000 MG Q6H 04/13 0745 CAN Sulbactam Sodium IV Sodium Chloride 100 ML Benzonatate 100 MG TID 04/08 2200 AC 04/13 PO 1102 Budesonide/ 2 PUF BID 04/12 1158 AC 04/13 Formoterol Fumarate INH 1102 Ceftazidime 1,000 MG IQ8 04/11 1600 AC 04/13 IV 1059 Fish Oil 1,050 MG DAILY 04/08 1000 AC 04/13 PO 1059 Guaifenesin 10 ML Q6P PRN 04/09 0930 AC 04/09 PO 1030 Guaifenesin/Codeine 10 ML BID PRN 04/09 1115 AC 04/12 Phosphate PO 0400 Ibuprofen 600 MG Q6P PRN 04/08 0945 AC PO Insulin Aspart 0 TIDAC 04/08 1200 AC 04/12 SC 1816 Ipratropium [place] 2.5 ML EVERY 4 HRS/AWAKE 04/09 1200 AC 04/13 INH 1250 Loratadine 10 MG DAILY 04/08 1000 AC 04/13 PO 1102 Lorazepam 0.5 MG BID 04/08 1000 AC 04/13 PO 04/15 0959 1106 Losartan Potassium 100 MG DAILY 04/08 1000 AC 04/13 PO 1102 Metoprolol Succinate 100 MG AT BEDTIME 04/08 2200 AC 04/12 PO 2159 Omeprazole 20 MG DAILY AC 04/09 0700 AC 04/13 PO 0647 Oxycodone/ 1 TAB Q6P PRN 04/08 0945 AC Acetaminophen PO Patient Medication 1 ED ONE ONE 04/13 1330 DC Teaching ED 04/13 1331 Polyethylene Glycol 17 GM DAILY PRN 04/09 1000 AC PO Prednisone 40 MG DAILY 04/09 1019 AC 04/13 PO 1102 Rivaroxaban 20 MG 1700 04/08 1700 AC 04/12 PO 1817 Senna/Docusate Sodium 1 TAB BID PRN 04/09 1000 AC 04/12 PO 0906 Sodium Chloride 2 SPRAY Q4P PRN 04/12 0015 AC HEMANT Vital Signs & I&O Last 24 Hrs of Vitals and I&O: Vital Signs Date Time Temp Pulse Resp B/P B/P Pulse O2 O2 Flow FiO2 Mean Ox Delivery Rate 04/13 1102 86 126/82 04/13 0840 96 Nasal 2.0L Cannula 04/13 0600 97.8 86 20 132/74 04/13 0557 97.8 86 22 132/74 94 Room Air 04/13 0400 97.5 67 20 148/76 04/13 0200 97.5 95 20 148/76 04/13 0000 97.5 95 20 148/76 04/13 0000 95 Nasal 1.0L Cannula 04/12 2238 97.5 67 20 148/76 94 Nasal 1.0L Cannula 04/12 2200 98.0 77 18 122/80 04/12 2159 98.7 100 20 144/80 04/12 2000 98.0 77 18 122/80 04/12 1615 90 Room Air 04/12 1600 Nasal 1.0L Cannula 04/12 1352 98.0 77 18 122/80 93 Room Air Room Air Intake & Output 04/13 1600 04/13 0800 04/13 0000 Intake Total 600 500 Output Total Balance 600 500 Intake, Oral 600 500 Impression/Plan Impression/Plan Impression/Plan: CT IMPRESSION: 1. No pulmonary embolism. 2. Diffuse bronchial filling defects with associated patchy airspace opacities seen in both lungs. Considerations include multifocal pneumonia versus aspiration. Prominent mediastinal lymph nodes are likely reactive. 3. No acute findings in the abdomen or pelvis. VTE: negative DICTATED BY: Mili CHÁVEZ,Camron DATE/TIME DICTATED:04/08/17647 REINALDO eomi neck supple chest mild crackles and diffuse wheezing abd obese no sig edema IMPRESSION 72 yo male with PMH of afib on xarelto, htn, anxiety, hld, who comes in with CC of SOB and cough. In ED triage he was satting 89-90% on RA and HR 110 in a.fib. ISSUES SIg bilateral bronchopneumonia/ with sig cough due to acitenobacter infection Severe edmundo on cpap Mild to mod Obstructive and restrictive lung disease, Morbid obesity REcent loss of his spouse Altered lfts REC Prednisone 40 qd for 5-7 days Ceftaz iv today and can change to po augmentin in am for a total duration of abx from the first day of ceftaz of 10 days Symbicort Keep hob up PPI Cont other meds Nebs atc Robutussin with codeine 10 ml bid prn will follow
[2017-04-14 07:15] VITALS: BP 144/86
--- NOTE | 2017-04-14 07:17 | PN- Housestaff ---
Festus CHÁVEZ,Shadia 04/14/17 0717: Subjective Follow-up For: Hypoxia2/2 multilobular PNA Afib on xarelto Transamanitis Subjective: Hypoxia2/2 multilobular PNA Afib on xarelto Transamanitis Review of Systems Constitutional: Denies: no symptoms. Cardiovascular: Reports: peripheral edema. Respiratory: Reports: cough, sputum production. Gastrointestinal: Denies: no symptoms. Genitourinary: Denies: no symptoms. Musculoskeletal: Denies: no symptoms. Objective Last 24 Hrs of Vital Signs/I&O Vital Signs Date Time Temp Pulse Resp B/P B/P Pulse O2 O2 Flow FiO2 Mean Ox Delivery Rate 04/14 0815 96 Room Air 04/14 0715 97.9 100 18 144/86 95 04/14 0000 Nasal 2.0L Cannula 04/13 2130 74 158/80 04/13 2127 98.0 74 18 158/80 94 Nasal 2.0L Cannula 04/13 2024 95 Nasal 2.0L Cannula 04/13 1640 90 Room Air 04/13 1600 Nasal 2.0L Cannula 04/13 1417 98.3 106 18 116/72 93 Nasal 2.0L Cannula 04/13 1102 86 126/82 Intake & Output 04/14 1600 04/14 0800 04/14 0000 Intake Total 240 720 Output Total Balance 240 720 Intake, Oral 240 720 Patient 228 lb Weight Physical Exam General Appearance: Alert, Oriented X3, Cooperative, No Acute Distress Skin: No Rashes, No Breakdown, No Significant Lesion HEENT: Atraumatic, PERRLA, EOMI, Mucous Membr. moist/pink Neck: Supple, No JVD Cardiovascular: Normal S1, Normal S2, No Murmurs Lungs: RALES AND WHEEZES Abdomen: Normal Bowel Sounds, Soft, No Tenderness Neurological: Normal Speech Extremities: Bilateral 2 + pitting edema Vascular: Normal Pulses Assessment/Plan Assessment: 75-year-old male with past medical history of A. fib on Xeralto, hypertension, anxiety, hyperlipidemia, presented to [place] ED complaining of shortness of breath, his pulse ox in the ED was around 90% on room air, heart rate [address] chest shows significant bilateral bronchopneumonia, sputum culture today due to gram negative rods (H influenza or Moraxella), patient also has history of severe obstructive sleep apnea on CPAP, morbid obesity #Bilateral bronchopneumonia continue Ceftaz 1 gm Q 12 day 4 Prednisone 40 by mouth daily for a total of 57 days sputum culture positive for Actinobacter Start Budesonide neb duoneb BID for 2 days Keep head of bed elevated Continue PPI TRC, Nebs atc Robitussin with codeine 10 mL twice a day when necessary #Afib RVR: Continue beta trevor and Xarelto #Transamanitis: Improving This is first time LFT elevated. Hold statin Will still administer Tylenol if febrile #HTN: Con't valsartan SRAVAN: hold Lsix monitor kidney function Anxiety: Con't home ativan The patient continues to be stable, he will be discharged home tomorrow on by mouth Augmentin FC Heart healthy diet dvt ppx with Xeralto Problem List: 1. Pneumonia 2. Atrial fibrillation Pain Ratin Pain Location: n/a Pain Goal: Remain pain free Pain Plan: Pathway Tomorrow's Labs & Rationales: N/A DVT/Prophylaxis: mechanical, pharmacological Luz Marina Jameson MD 04/14/17 1215: Attending MD Review Statement Attending Statement Attending MD Statement: examined this patient, discuss w/resident/PA/SLICING MACHINE OPERATOR/TENDER, agreed w/resident/PA/SLICING MACHINE OPERATOR/TENDER, reviewed EMR data (avail) Attending Assessment/Plan: 72M PMH atrial fibrillation on Xarelto, HTN, HLD, YURY presenting with 4 days of productive cough, dyspnea, and wheezing, found to be hypoxic in ED to 89% on room air, with imaging showing multilobar pneumonia. CTA chest negative for PE. Rate controlled atrial fibrillation. Patient feels a bit better today. He is breathing comfortably, still requiring supplemental oxygen. Lung exam improved. Sputum culture growing Citrobacter. AFVSS. 1. Bilateral lower lobe pneumonia secondary to Citrobacter 2. Hypoxia 3. Paroxysmal atrial fibrillation Plan - Stable for discharge home - Augmentin on discharge - Follow pulmonary recommendations, outpatient follow up - Prednisone taper - Continue home medications
[2017-04-14] MEDS ORDERED: AUGMENTIN 875-1 EACH PO (07:34)
--- NOTE | 2017-04-14 08:49 | Discharge Summary ---
Visit Information Visit Dates Admission Date: 04/08/17 Discharge Date: 04/14/17 Hospital Course Course Attending Physician: Luz Marina Jameson MD Primary Care Physician: Peterson Collier MD Hospital Course: 75-year-old male with past medical history of A. fib on Xeralto, hypertension, anxiety, hyperlipidemia, presented to [place] ED complaining of shortness of breath, his pulse ox in the ED was around 90% on room air, heart rate [address] chest shows significant bilateral bronchopneumonia, sputum culture : gram negative rods Actinobacter, patient also has history of severe obstructive sleep apnea on CPAP, morbid obesity #Chest CTA: 1. No pulmonary embolism. 2. Diffuse bronchial filling defects with associated patchy airspace opacities seen in both lungs. Considerations include multifocal pneumonia versus aspiration. Prominent mediastinal lymph nodes are likely reactive. 3. No acute findings in the abdomen or pelvis. #Bilateral bronchopneumonia Was initially treated with ceftaz for 4 days, which will switch to Augmentin to complete a course of 10 days. This and the patient was treated with Solu-Medrol and then switch her to by mouth prednisone taper, Budesonide neb duoneb BID for 2 day. He was treated also with PPI and TRC, Nebs atc, Robitussin with codeine 10 mL twice a day when necessary #Afib RVR: Continue beta trevor and Xarelto #Transamanitis: Improving Will need further follow-up as an outpatient, #HTN: Con't valsartan SRAVAN: hold Lsix monitor kidney function Anxiety: Con't home ativan FC Heart healthy diet dvt ppx with Xeralto Allergies: Coded Allergies: No Known Allergies (04/08/17) Disposition Summary Disposition Principal Diagnosis: Hypoxia2/2 multilobular PNA Additional Diagnosis: Afib on xarelto Transamanitis Discharge Disposition: home or self care Discharge Instructions General Discharge Information Code Status: Full Code Patient's Diet: Heart healthy diet Patient's Activity: As tolerated Follow-Up Instructions/Appts: 1- please follow up with your PCP in 1 week of Dc 2- please follow up with your agricultural research technologist in1 week of DC Medications at Discharge Discharge Medications: Stop taking the following medications: Azithromycin (Azithromycin) 250 MG TABLET ORAL As Directed Qty = 6 Continue taking these medications: Valsartan (Diovan) 320 MG TABLET 1 Tablet ORAL DAILY Comments: NOT GIVEN IN HOSPITAL Metformin HCl (Metformin HCl) 500 MG TABLET 1 Tablet ORAL TWICE DAILY Comments: NOT GIVEN IN HOSPITAL Lorazepam (Ativan) 0.5 MG TABLET 1 Tablet ORAL TWICE DAILY Comments: Last Taken: 04/14/17 Time: 9AM Folic Acid/Multivit-Min/Lutein (Centrum Silver Chewable Tablet) 400 MCG-250 MCG TAB.CHEW 1 Tablet ORAL DAILY Comments: NOT GIVEN IN HOSPITAL Loyal-3 Acid Ethyl Esters (Lovaza) 1 GRAM CAPSULE 2 Capsule ORAL TWICE DAILY Comments: Last Taken: 04/14/17 Time: 9AM Potassium Chloride (Potassium Chloride) 10 MEQ TABLET.ER 1 Tablet ORAL DAILY Qty = 90 Comments: NOT GIVEN IN HOSPITAL Montelukast Sodium (Montelukast Sodium) 10 MG TABLET 1 Tablet ORAL DAILY Qty = 90 Comments: NOT GIVEN IN HOSPITAL Albuterol Sulfate (Proair Hfa) 90 MCG HFA.AER.AD 2 Puff Inhale through mouth EVERY 4-6 HOURS NEEDED as needed for BREATHING Qty = 85 Comments: NOT GIVEN IN HOSPITAL Pitavastatin Calcium (Livalo) 4 MG TABLET 1 Tablet ORAL M,W,FR Qty = 30 Comments: NOT GIVEN IN HOSPITAL Metoprolol Succinate (Metoprolol Succinate) 100 MG TAB.ER.24H 1 Tablet ORAL TAKE AT BEDTIME Qty = 90 Comments: Last Taken: 04/13/17 Time: 2130PM Ubidecarenone (Coq-10) 100 MG CAPSULE 1 Capsule ORAL TAKE AT BEDTIME Comments: NOT GIVEN IN HOSPITAL Furosemide (Lasix) 20 MG TABLET Unknown Dose ORAL DAILY Comments: Last Taken: 04/14/17 Time: 9AM Cetirizine HCl (Zyrtec) 10 MG TABLET 1 Tablet ORAL DAILY Comments: NOT GIVEN IN HOSPITAL Rivaroxaban (Xarelto) 20 MG TABLET 1 Tablet ORAL DAILY Days = 28 Instructions: with food Comments: Last Taken: 04/13/17 Time: 1700PM Start taking the following new medications: Guaifenesin (Guaifenesin) 100 MG/5 ML LIQUID 10 Milliliters ORAL EVERY SIX HOURS NEEDED as needed for COUGH Qty = 60 No Refills Instructions: . Comments: NOT GIVEN IN HOSPITAL Polyethylene Glycol 3350 (Miralax) 17 GRAM/DOSE POWDER 17 Gram ORAL DAILY as needed for CONSTIPATION Qty = 30 No Refills Instructions: . Comments: NOT GIVEN IN HOSPITAL Sennosides/Docusate Sodium (Senna Plus Tablet) 8.6 MG-50 MG TABLET 1 Tablet ORAL TWICE DAILY as needed for CONSTIPATION Qty = 30 No Refills Instructions: . Comments: Last Taken: 04/14/17 Time: 530AM Codeine Phosphate/Guaifenesi (Guaifenesin AC Cough Syrup) 10 MG-100 MG/5 ML LIQUID 10 Milliliters ORAL TWICE DAILY as needed for COUGH Qty = 1 No Refills Comments: Last Taken: 04/14/17 Time: 8AM Prednisone (Prednisone) 10 MG TABLET 1 Tablet ORAL DAILY Qty = 33 No Refills Instructions: 4 TABS DAILY ON 04/14-04/15 3 TABS DAILY 04/16-04/18 2 TABS DAILY 04/19-04/21 1 TAB DAILY 04/22-04/24 THEN STOP Comments: Last Taken: 04/14/17 Time: 9AM Amoxicillin/Potassium Clav (Augmentin 875-125 Tablet) 875 MG-125 MG TABLET 1 Tablet ORAL TWICE DAILY Qty = 14 No Refills Comments: NOT GIVEN IN HOSPITAL Copies To: Amira CHÁVEZ,Peterson Soriano
[2017-04-14 08:56] VITALS: BP 144/86
[2017-04-14] MEDS ORDERED: GUAIFENESIN AC473 M2 PO (08:59)
[2017-04-14] MEDS ORDERED: XARELTO20 M2 PO (09:36)
--- NOTE | 2017-04-14 13:45 | PN- Pulmonary ---
Subjective HPI/Critical Care Issues: Much improved stable Objective Current Medications: Current Medications Sig/Rick Start time Last Medication Dose Route Stop Time Status Admin Acetaminophen 650 MG Q6P PRN 04/08 0945 DCD PO Albuterol Sulfate 2.5 ML EVERY 4 HRS/AWAKE 04/09 0800 DCD 04/14 INH 0813 Benzonatate 100 MG TID 04/08 2200 DCD 04/14 PO 0856 Budesonide/ 2 PUF BID 04/12 1158 DCD 04/14 Formoterol Fumarate INH 0857 Ceftazidime 1,000 MG IQ8 04/11 1600 DCD 04/14 IV 0855 Fish Oil 1,050 MG DAILY 04/08 1000 DCD 04/14 PO 0856 Furosemide 20 MG DAILY 04/14 1000 DCD 04/14 PO 0857 Guaifenesin 10 ML Q6P PRN 04/09 0930 DCD 04/09 PO 1030 Guaifenesin/Codeine 10 ML BID PRN 04/09 1115 DCD 04/14 Phosphate PO 0801 Ibuprofen 600 MG Q6P PRN 04/08 0945 DCD PO Insulin Aspart 0 TIDAC 04/08 1200 DCD 04/13 SC 1703 Ipratropium [place] 2.5 ML EVERY 4 HRS/AWAKE 04/09 1200 DCD 04/14 INH 0813 Loratadine 10 MG DAILY 04/08 1000 DCD 04/14 PO 0856 Lorazepam 0.5 MG BID 04/08 1000 DCD 04/14 PO 04/15 0959 0901 Losartan Potassium 100 MG DAILY 04/08 1000 DCD 04/14 PO 0856 Metoprolol Succinate 100 MG AT BEDTIME 04/08 2200 DCD 04/13 PO 2130 Omeprazole 20 MG DAILY AC 04/09 0700 DCD 04/14 PO 0534 Oxycodone/ 1 TAB Q6P PRN 04/08 0945 DCD Acetaminophen PO Polyethylene Glycol 17 GM DAILY PRN 04/09 1000 DCD PO Prednisone 40 MG DAILY 04/09 1019 DCD 04/14 PO 0856 Rivaroxaban 20 MG 1700 04/08 1700 DCD 04/13 PO 1702 Senna/Docusate Sodium 1 TAB BID PRN 04/09 1000 DCD 04/14 PO 0628 Sodium Chloride 2 SPRAY Q4P PRN 04/12 0015 DCD HEMANT Vital Signs & I&O Last 24 Hrs of Vitals and I&O: Vital Signs Date Time Temp Pulse Resp B/P B/P Pulse O2 O2 Flow FiO2 Mean Ox Delivery Rate 04/14 1017 93 Room Air 04/14 0856 100 144/86 04/14 0815 96 Room Air 04/14 0715 97.9 100 18 144/86 95 04/14 0000 Nasal 2.0L Cannula 04/13 2130 74 158/80 04/13 2127 98.0 74 18 158/80 94 Nasal 2.0L Cannula 04/13 2024 95 Nasal 2.0L Cannula 04/13 1640 90 Room Air 04/13 1600 Nasal 2.0L Cannula 04/13 1417 98.3 106 18 116/72 93 Nasal 2.0L Cannula Intake & Output 04/14 1600 04/14 0800 04/14 0000 Intake Total 240 720 Output Total Balance 240 720 Intake, Oral 240 720 Number 1 Bowel Movements Patient 228 lb Weight Impression/Plan Impression/Plan Impression/Plan: CT IMPRESSION: 1. No pulmonary embolism. 2. Diffuse bronchial filling defects with associated patchy airspace opacities seen in both lungs. Considerations include multifocal pneumonia versus aspiration. Prominent mediastinal lymph nodes are likely reactive. 3. No acute findings in the abdomen or pelvis. VTE: negative DICTATED BY: Mili CHÁVEZ,Camron DATE/TIME DICTATED:04/08/17647 REINALDO eomi neck supple chest mild crackles and diffuse wheezing abd obese no sig edema IMPRESSION 72 yo male with PMH of afib on xarelto, htn, anxiety, hld, who comes in with CC of SOB and cough. In ED triage he was satting 89-90% on RA and HR 110 in a.fib. ISSUES SIg bilateral bronchopneumonia/ with sig cough due to acitenobacter infection Severe edmundo on cpap Mild to mod Obstructive and restrictive lung disease, Morbid obesity REcent loss of his spouse Altered lfts REC Prednisone 40 qd for 5-7 days Ceftaz iv today and can change to po augmentin in am for a total duration of abx from the first day of ceftaz of 10 days Symbicort Keep hob up PPI Cont other meds Nebs atc will follow as out pt next week ok to dc
== END 2017-04-14 12:23 | DRG 194 ==
LOC: ERH 02:37 → ERHI 06:27 → 2NB 06:27 → ENRESERV 16:28 → ENTRNSPT 17:27 → 2NB 18:16 → CMPTRNSPT 18:20 → ENPENDDIS 04-14 10:25 → ENTRNSPT 04-14 12:04 → EDTRNSPT 04-14 12:12 → EDTRNSPTSTS 04-14 12:12 → 2NB 04-14 12:23 → CMPTRNSPT 04-14 12:28
PROVIDERS: Pediatrics; Student in an Organized Health Care Education/Training Program
DX: J14 Pneumonia due to Hemophilus influenzae (principal); J44.0 Chronic obstructive pulmonary disease with (acute) lower respiratory infection; I27.29 Other secondary pulmonary hypertension; I48.0 Paroxysmal atrial fibrillation; E66.01 Morbid (severe) obesity due to excess calories; R09.02 Hypoxemia; Z79.01 Long term (current) use of anticoagulants; I10 Essential (primary) hypertension; F41.9 Anxiety disorder, unspecified; G47.33 Obstructive sleep apnea (adult) (pediatric); Z68.34 Body mass index [BMI] 34.0-34.9, adult; I48.91 Unspecified atrial fibrillation; R74.0 Nonspecific elevation of levels of transaminase and lactic acid dehydrogenase [LDH]; E78.5 Hyperlipidemia, unspecified; R91.1 Solitary pulmonary nodule; E11.9 Type 2 diabetes mellitus without complications; Z79.84 Long term (current) use of oral hypoglycemic drugs; Z87.891 Personal history of nicotine dependence; K59.00 Constipation, unspecified
CPT/HCPCS: 2NSBP; 36415; 71046; 74176; 80307; 82436; 87040; 87070; 87449; 87450; 87804; 87804-59; 93005; 93010; 96374; 96375; J0456; J0696; J0713; J1650; J2930; J3490; J7060; J7508; J7626